=== PATIENT | female | born 1935 | race Caucasian/White ===

== ENCOUNTER 2016-10-17 18:26 | Emergency (ER) | payer OTHER, MEDICAID ==
[~2016-10-17] VITALS: Ht 149.9 cm; Wt 59.0 kg
[2016-10-17 18:26] VITALS: BP 145/92; PULSE 58; RESP 25; TEMP 97.5; O2SAT 100
[~2016-10-17 18:26] MED LIST: ALPHAGAN1 OP; ASPI81TA2 PO; CITA10SO6 PO; DONE5TAB3 PO; DORZ10DR8 OP; ENAL10TA PO; ERGO8000 PO; FERR-57 PO; LEVO100T9 PO; LEVO5TAB13 PO; NIFE30TA27 PO; PROP10DR5 OP; SER100 PO; TRAV2.5D OP
--- NOTE | 2016-10-17 18:26 | NUR ---
Placed in room 03. Placed on switch adjuster, blood pressure machine and pulse oximeter. To gown for exam. Side rails up. Report given to NOHEMI Howard.
--- NOTE | 2016-10-17 18:41 | NUR ---
Medication reconciliation completed with information provided by daughter. Any prior medication reconciliation on file was reviewed and corrected.
[2016-10-17] MEDS ORDERED: ASPIRIN 325 MG TABLET PO ONE (18:45)
[2016-10-17 18:59] LABS: BASOPHILS % (AUTO) 0.5 % (0.0-2.0); EOSINOPHILS # (AUTO) 0.3 K/uL (0.0-0.4); EOSINOPHILS % (AUTO) 4.1 % (0.0-4.0); HEMATOCRIT 30.8 % (36-48); HEMOGLOBIN 9.9 g/dL (12.0-16.0); LYMPHOCYTES # (AUTO) 1.9 K/uL (1.0-5.5); LYMPHOCYTES % (AUTO) 23.9 % (20.5-51.5); MEAN CORPUSCULAR HEMOGLOBIN 29 pg (27-31); MEAN CORPUSCULAR HGB CONC 32 % (32-36); MEAN CORPUSCULAR VOLUME 89 fL (79.0-98.0); MONOCYTES % (AUTO) 12.8 % (1.7-9.3); NEUTROPHILS # (AUTO) 4.9 K/uL (1.8-7.7); NEUTROPHILS % (AUTO) 58.7 % (40.0-70.0); PLATELET COUNT (AUTO) 269 K/uL (130-430); RED BLOOD CELL COUNT(AUTO) 3.48 MIL/uL (4.2-6.2); RED CELL DISTRIBUTION WIDTH 13.8 % (9.0-15.0); WHITE BLOOD COUNT (AUTO) 8.1 K/uL (4.8-10.8)
[2016-10-17 19:08] LABS: ANION GAP 5 (5-15); CHLORIDE 105 mmol/L (98-107); GLUCOSE 102 mg/dL (70-99); POTASSIUM 4.2 mmol/L (3.5-5.1); SODIUM SERUM 135 mmol/L (136-145); UREA NITROGEN, BLOOD 22 mg/dL (8-21)
[2016-10-17 19:11] LABS: INR 0.9 (0.8-1.2); PROTHROMBIN TIME 10.3 SECS (9.5-12.5)
[2016-10-17 19:13] LABS: ALANINE AMINOTRANSFERASE 21 U/L (12-78); ALBUMIN 3.2 g/dL (3.4-4.8); ASPARTATE AMINOTRANSFERASE 15 U/L (10-37); TOTAL BILIRUBIN 0.1 mg/dL (0.0-1.0); TOTAL PROTEIN, SERUM 6.5 g/dL (6.4-8.3)
--- NOTE | 2016-10-17 19:13 | NUR ---
hand off to Cory SONG
--- NOTE | 2016-10-17 19:19 | NUR ---
Pt states about an hour ago, pt started having epigastric pain 8/10 with dyspnea and nausea. Pt is AAOX4. Pt is malay speaking only. VSS. Lung sounds clear in all lobes. No distress noted. Will continue to monitor via monitor technician. No other injuries or complaints mentioned/noted.
[2016-10-17] MEDS ORDERED: PROCHLORPERAZINE EDISYLATE 10 MG/2 ML VIAL IVP ONE (19:30)
[2016-10-17] MEDS ORDERED: KETOROLAC TROMETHAMINE 15 MG VIAL IVP ONE (19:30)
[2016-10-17] MEDS ORDERED: MAG HYDROX/AL HYDROX/SIMETH 30 ML, BELLADONNA ALKALOIDS/PHENOBARB 10 ML, LIDOCAINE VISC... PO ONE ×3 (19:30)
[2016-10-17] MEDS ORDERED: KETOROLAC TROMETHAMINE 30 MG VIAL IVP ONE (20:30)
[2016-10-17 21:11] VITALS: BP 161/74; PULSE 58; RESP 25; TEMP 97.5; O2SAT 97
--- NOTE | 2016-10-17 21:11 | NUR ---
Patient given written and verbal discharge instructions and verbalizes understanding. ER MD discussed with patient the results and treatment provided. Given copies of tests performed in ER. Patient in stable condition. ID arm band removed. IV catheter removed intact and dressing applied, no active bleeding. Rx of Mylanta and bentyl given. Patient educated on pain management and to follow up with PMD. Pain Scale 0/10. Opportunity for questions provided and answered.
== END 2016-10-17 21:11 | disposition home or self-care (01) ==
LOC: SED 18:26
DX: K44.9 Diaphragmatic hernia without obstruction or gangrene (principal); I10 Essential (primary) hypertension; J45.909 Unspecified asthma, uncomplicated; M81.0 Age-related osteoporosis without current pathological fracture
CPT/HCPCS: 36415; 71010; 74176; 80053; 83690; 83880; 84484; 85025; 85610; 85730; 93005; 96374; 96375; 96376; 99285; J0780; J1885 ×2; J2001

== ENCOUNTER 2017-03-23 17:43 | Inpatient (IN) | payer OTHER, MEDICAID ==
[~2017-03-23] VITALS: Ht 149.9 cm; Wt 54.4 kg
[2017-03-23 17:52] VITALS: BP_SYST 110
[2017-03-23 18:27] LABS: BASOPHILS % (AUTO) 0.4 % (0.0-2.0); EOSINOPHILS # (AUTO) 0.3 K/uL (0.0-0.4); EOSINOPHILS % (AUTO) 3.7 % (0.0-4.0); HEMATOCRIT 28.7 % (36-48); HEMOGLOBIN 9.1 g/dL (12.0-16.0); LYMPHOCYTES % (AUTO) 26.1 % (20.5-51.5); MEAN CORPUSCULAR HEMOGLOBIN 28 pg (27-31); MEAN CORPUSCULAR HGB CONC 32 % (32-36); MEAN CORPUSCULAR VOLUME 88 fL (79.0-98.0); MONOCYTES % (AUTO) 12.6 % (1.7-9.3); NEUTROPHILS # (AUTO) 4.4 K/uL (1.8-7.7); NEUTROPHILS % (AUTO) 57.2 % (40.0-70.0); PLATELET COUNT (AUTO) 234 K/uL (130-430); RED BLOOD CELL COUNT(AUTO) 3.28 MIL/uL (4.2-6.2); RED CELL DISTRIBUTION WIDTH 15.1 % (9.0-15.0); WHITE BLOOD COUNT (AUTO) 7.8 K/uL (4.8-10.8)
[2017-03-23 18:38] LABS: ANION GAP 6 (5-15); CALCIUM 9.1 mg/dL (8.4-11.0); CHLORIDE 107 mmol/L (98-107); CREATININE 1.16 mg/dL (0.55-1.30); GLUCOSE 107 mg/dL (70-99); SODIUM SERUM 136 mmol/L (136-145); UREA NITROGEN, BLOOD 28 mg/dL (8-21)
[2017-03-23 18:52] LABS: INR 0.9 (0.8-1.2); PROTHROMBIN TIME 10.3 SECS (9.5-12.5)
[2017-03-23] MEDS ORDERED: ASPIRIN 325 MG TABLET PO ONE (19:30)
[2017-03-23] MEDS ORDERED: LEVO100T9 PO (19:56)
[2017-03-23] MEDS ORDERED: HYDR-2472 PO (19:56)
[2017-03-23] MEDS ORDERED: CETI1TAB2 PO (19:56)
[2017-03-23] MEDS ORDERED: ENAL10TA PO (19:59)
[2017-03-23] MEDS ORDERED: ASPI81TA2 PO (19:59)
[2017-03-23] MEDS ORDERED: HYDR-3698 PO (19:59)
[2017-03-23] MEDS ORDERED: FAMO-129 PO (19:59)
[2017-03-23] MEDS ORDERED: FERR-57 PO (20:04)
[2017-03-23] MEDS ORDERED: CEL20 PO (20:04)
[2017-03-23] MEDS ORDERED: SER100 PO (20:04)
[2017-03-23] MEDS ORDERED: LEVO5TAB2 PO (20:04)
[2017-03-23] MEDS ORDERED: DILT120C89 PO (20:04)
[2017-03-23] MEDS ORDERED: DORZ10DR8 OP (20:04)
[2017-03-23] MEDS ORDERED: LATA2.5D6 OP (20:04)
[2017-03-23] MEDS: POTASSIUM CHLORIDE 20 MEQ in D5/0.45 NS 1,000 ML IV SCH (20:40)
[2017-03-23 21:31] VITALS: BP_SYST 140
[2017-03-23 21:34] VITALS: BP_SYST 140
[2017-03-23] MEDS ORDERED: CITALOPRAM HYDROBROMIDE 20 MG TABLET PO ONE (23:00)
[2017-03-23] MEDS ORDERED: QUEtiapine FUMARATE 100 MG TABLET PO SCH (23:15)
[2017-03-23] MEDS ORDERED: CITALOPRAM HYDROBROMIDE 20 MG TABLET PO SCH (23:15)
[2017-03-23 23:41] VITALS: BP_SYST 150
[2017-03-24] MEDS ORDERED: MILK OF MAGNESIA 30 ML UDC PO PRN (01:00)
[2017-03-24 03:49] VITALS: BP_SYST 148
[2017-03-24] MEDS: LEVOTHYROXINE SODIUM 0.1 MG TABLET PO SCH (06:15)
[2017-03-24 08:05] VITALS: BP_SYST 141
[2017-03-24] MEDS: CITALOPRAM HYDROBROMIDE 20 MG TABLET PO SCH (09:25)
[2017-03-24] MEDS: DILTIAZEM HCL 120 MG CAP.SR.24H PO SCH (09:25)
[2017-03-24] MEDS: ENALAPRIL MALEATE 10 MG TABLET (VASOTEC) PO SCH (09:25)
[2017-03-24] MEDS: QUEtiapine FUMARATE 100 MG TABLET PO SCH (09:25)
[2017-03-24] MEDS: FERROUS SULFATE 325 MG TABLET.DR PO SCH ×2 (09:26→20:59)
[2017-03-24] MEDS: ASPIRIN 81 MG TAB.CHEW PO SCH (09:26)
[2017-03-24] MEDS: LATANOPROST 2.5 ML DROPS (XALATAN) OP SCH (09:26)
[2017-03-24] MEDS: DORZOLAMIDE 2% OPHTHALMIC SOLN 5ML OP SCH ×2 (09:26→20:59)
[2017-03-24 12:32] VITALS: BP_SYST 143
[2017-03-24] MEDS: POTASSIUM CHLORIDE 20 MEQ in D5/0.45 NS 1,000 ML IV SCH (14:02)
[2017-03-24 20:15] VITALS: BP_SYST 125
[2017-03-24] MEDS ORDERED: QUEtiapine FUMARATE 100 MG TABLET PO ONE (23:00)
[2017-03-25] VITALS (10 sets, daily range): BP systolic 127–179
[2017-03-25] MEDS: POTASSIUM CHLORIDE 20 MEQ in D5/0.45 NS 1,000 ML IV SCH ×2 (02:13→14:48)
[2017-03-25] MEDS: LEVOTHYROXINE SODIUM 0.1 MG TABLET PO SCH (06:09)
[2017-03-25 07:54] LABS: IRON (SERUM) 30 mcg/dL (37-145); TOTAL IRON BIND. CAPACITY 171 ug/dL (250-450)
[2017-03-25] MEDS: DORZOLAMIDE 2% OPHTHALMIC SOLN 5ML OP SCH ×2 (08:22→20:32)
[2017-03-25] MEDS: LATANOPROST 2.5 ML DROPS (XALATAN) OP SCH (08:22)
[2017-03-25] MEDS: ENALAPRIL MALEATE 10 MG TABLET (VASOTEC) PO SCH (08:22)
[2017-03-25] MEDS: DILTIAZEM HCL 120 MG CAP.SR.24H PO SCH (08:24)
[2017-03-25] MEDS: CITALOPRAM HYDROBROMIDE 20 MG TABLET PO SCH (08:25)
[2017-03-25] MEDS: QUEtiapine FUMARATE 100 MG TABLET PO SCH (08:25)
[2017-03-25] MEDS: ASPIRIN 81 MG TAB.CHEW PO SCH (08:25)
[2017-03-25] MEDS: FERROUS SULFATE 325 MG TABLET.DR PO SCH ×2 (08:25→20:32)
[2017-03-25 09:21] LABS: ANION GAP 5 (5-15); CALCIUM 9.1 mg/dL (8.4-11.0); CHLORIDE 111 mmol/L (98-107); CREATININE 0.93 mg/dL (0.55-1.30); GLUCOSE 92 mg/dL (70-99); POTASSIUM 4.5 mmol/L (3.5-5.1); SODIUM SERUM 137 mmol/L (136-145); UREA NITROGEN, BLOOD 15 mg/dL (8-21)
[2017-03-25 10:35] LABS: BASOPHILS # (AUTO) 0.1 K/uL (0.0-0.2); BASOPHILS % (AUTO) 1.3 % (0.0-2.0); EOSINOPHILS # (AUTO) 0.3 K/uL (0.0-0.4); HEMOGLOBIN 11.4 g/dL (12.0-16.0); LYMPHOCYTES # (AUTO) 1.8 K/uL (1.0-5.5); LYMPHOCYTES % (AUTO) 28.2 % (20.5-51.5); MEAN CORPUSCULAR HEMOGLOBIN 28 pg (27-31); MEAN CORPUSCULAR HGB CONC 32 % (32-36); MEAN CORPUSCULAR VOLUME 88 fL (79.0-98.0); MONOCYTES # (AUTO) 0.7 K/uL (0.0-1.0); MONOCYTES % (AUTO) 10.2 % (1.7-9.3); NEUTROPHILS # (AUTO) 3.6 K/uL (1.8-7.7); NEUTROPHILS % (AUTO) 56.3 % (40.0-70.0); PLATELET COUNT (AUTO) 254 K/uL (130-430); RED BLOOD CELL COUNT(AUTO) 4.07 MIL/uL (4.2-6.2); RED CELL DISTRIBUTION WIDTH 15.2 % (9.0-15.0)
[2017-03-25 12:11] LABS: WHITE BLOOD COUNT (AUTO) 6.5 K/uL (4.8-10.8)
[2017-03-26] MEDS: POTASSIUM CHLORIDE 20 MEQ in D5/0.45 NS 1,000 ML IV SCH ×2 (04:58→17:33)
[2017-03-26 05:14] VITALS: BP_SYST 120
[2017-03-26] MEDS: LEVOTHYROXINE SODIUM 0.1 MG TABLET PO SCH (06:05)
[2017-03-26 08:01] VITALS: BP_SYST 130
[2017-03-26] MEDS: CITALOPRAM HYDROBROMIDE 20 MG TABLET PO SCH (09:02)
[2017-03-26] MEDS: ASPIRIN 81 MG TAB.CHEW PO SCH (09:03)
[2017-03-26] MEDS: DILTIAZEM HCL 120 MG CAP.SR.24H PO SCH (09:03)
[2017-03-26] MEDS: QUEtiapine FUMARATE 100 MG TABLET PO SCH (09:03)
[2017-03-26] MEDS: FERROUS SULFATE 325 MG TABLET.DR PO SCH ×2 (09:03→21:55)
[2017-03-26] MEDS: ENALAPRIL MALEATE 10 MG TABLET (VASOTEC) PO SCH (09:04)
[2017-03-26] MEDS: DORZOLAMIDE 2% OPHTHALMIC SOLN 5ML OP SCH ×2 (09:04→21:00)
[2017-03-26] MEDS: LATANOPROST 2.5 ML DROPS (XALATAN) OP SCH (09:04)
[2017-03-26 12:15] VITALS: BP_SYST 140
[2017-03-26 17:03] VITALS: BP_SYST 132
[2017-03-26 19:45] VITALS: BP_SYST 133
[2017-03-26] MEDS: MEGESTROL ACETATE 400 MG/10 ML UDC PO SCH (21:53)
[2017-03-26 23:56] VITALS: BP_SYST 125
[2017-03-27 03:08] VITALS: BP_SYST 121
[2017-03-27] MEDS: POTASSIUM CHLORIDE 20 MEQ in D5/0.45 NS 1,000 ML IV SCH (06:25)
[2017-03-27] MEDS: LEVOTHYROXINE SODIUM 0.1 MG TABLET PO SCH (06:27)
[2017-03-27 08:00] VITALS: BP_SYST 167
[2017-03-27] MEDS: MEGESTROL ACETATE 400 MG/10 ML UDC PO SCH (08:34)
[2017-03-27] MEDS: CITALOPRAM HYDROBROMIDE 20 MG TABLET PO SCH (08:37)
[2017-03-27] MEDS: FERROUS SULFATE 325 MG TABLET.DR PO SCH (08:37)
[2017-03-27] MEDS: DILTIAZEM HCL 120 MG CAP.SR.24H PO SCH (08:37)
[2017-03-27] MEDS: DORZOLAMIDE 2% OPHTHALMIC SOLN 5ML OP SCH (08:38)
[2017-03-27] MEDS: ASPIRIN 81 MG TAB.CHEW PO SCH (08:38)
[2017-03-27] MEDS: ENALAPRIL MALEATE 10 MG TABLET (VASOTEC) PO SCH (08:38)
[2017-03-27] MEDS: LATANOPROST 2.5 ML DROPS (XALATAN) OP SCH (08:39)
[2017-03-27 12:26] VITALS: BP_SYST 129
[2017-03-27 13:09] VITALS: BP_SYST 133
[2017-03-27 18:00] VITALS: BP_SYST 133
[2017-03-27 18:08] VITALS: BP_SYST 141
[2017-03-27] MEDS ORDERED: QUEtiapine FUMARATE 100 MG TABLET PO SCH (21:00)
== END 2017-03-27 18:45 | disposition home or self-care (01) | DRG 69 ==
LOC: SED 17:43 → STU 19:55 → MERGE 20:40 → STU 20:40 → SMU 03-25 18:00
PROVIDERS: ADMIT Family Medicine; ATTEND Family Medicine
DX: G45.9 Transient cerebral ischemic attack, unspecified (principal); G81.91 Hemiplegia, unspecified affecting right dominant side; F03.90 Unspecified dementia, unspecified severity, without behavioral disturbance, psychotic disturbance, mood disturbance, and anxiety; F20.9 Schizophrenia, unspecified; D64.9 Anemia, unspecified; I10 Essential (primary) hypertension; E03.9 Hypothyroidism, unspecified; H54.0 Blindness, both eyes; M19.90 Unspecified osteoarthritis, unspecified site; Z86.73 Personal history of transient ischemic attack (TIA), and cerebral infarction without residual deficits
CPT/HCPCS: 36415; 70450-TC; 70490; 71010; 80048; 82607; 82728; 82746; 82962; 83540-TC; 83550-TC; 84484; 85025; 85610-TC; 85730-TC; 93005; 97110-GP; 97116-GP; 97530-GP; 99285; J3480

== ENCOUNTER 2017-05-05 01:17 | Inpatient (IN) | payer OTHER, MEDICAID ==
[~2017-05-05] VITALS: Ht 149.9 cm; Wt 54.9 kg
[~2017-05-05 01:17] MED LIST changes: +CEL20 PO; +CETI1TAB2 PO; +DILT120C89 PO; +FAMO-129 PO; +HYDR-3698 PO; +LATA2.5D6 OP; +LEVO5TAB2 PO
[2017-05-05 01:28] VITALS: BP_SYST 178
[2017-05-05] MEDS ORDERED: NACL 0.9% 1,000 ML IV ONE (01:45)
[2017-05-05] MEDS ORDERED: PROMETHAZINE CODEINE PO (02:00)
[2017-05-05] MEDS ORDERED: MUPI1OIN4 (02:00)
[2017-05-05] MEDS ORDERED: METHYLPREDNISOLONE (02:00)
[2017-05-05] MEDS ORDERED: LEVO500T20 PO (02:00)
[2017-05-05] MEDS ORDERED: LACT1CAP57 PO (02:00)
[2017-05-05 02:42] LABS: BASOPHILS # (AUTO) 0.1 K/uL (0.0-0.2); BASOPHILS % (AUTO) 0.8 % (0.0-2.0); EOSINOPHILS # (AUTO) 0.3 K/uL (0.0-0.4); EOSINOPHILS % (AUTO) 3.6 % (0.0-4.0); HEMATOCRIT 36.6 % (36-48); HEMOGLOBIN 11.9 g/dL (12.0-16.0); LYMPHOCYTES # (AUTO) 2.1 K/uL (1.0-5.5); LYMPHOCYTES % (AUTO) 28.3 % (20.5-51.5); MEAN CORPUSCULAR HEMOGLOBIN 28 pg (27-31); MEAN CORPUSCULAR HGB CONC 33 % (32-36); MEAN CORPUSCULAR VOLUME 87 fL (79.0-98.0); MONOCYTES # (AUTO) 0.9 K/uL (0.0-1.0); NEUTROPHILS % (AUTO) 55.3 % (40.0-70.0); PLATELET COUNT (AUTO) 274 K/uL (130-430); RED BLOOD CELL COUNT(AUTO) 4.21 MIL/uL (4.2-6.2); RED CELL DISTRIBUTION WIDTH 14.1 % (9.0-15.0); WHITE BLOOD COUNT (AUTO) 7.4 K/uL (4.8-10.8)
[2017-05-05 02:52] LABS: ANION GAP 11 (5-15); CALCIUM 10.2 mg/dL (8.4-11.0); CHLORIDE 110 mmol/L (98-107); CREATININE 1.07 mg/dL (0.55-1.30); GLUCOSE 95 mg/dL (70-99); POTASSIUM 4.3 mmol/L (3.5-5.1); SODIUM SERUM 142 mmol/L (136-145); UREA NITROGEN, BLOOD 18 mg/dL (8-21)
[2017-05-05 03:00] LABS: ALANINE AMINOTRANSFERASE 16 U/L (12-78); ALBUMIN 3.6 g/dL (3.4-4.8); ASPARTATE AMINOTRANSFERASE 15 U/L (10-37); LIPASE 417 U/L (73-393); TOTAL BILIRUBIN 0.3 mg/dL (0.0-1.0)
[2017-05-05 03:14] LABS: BILIRUBIN,URINE NEGATIVE (NEGATIVE); BLOOD, URINE NEGATIVE (NEGATIVE); CLARITY/URINE CLEAR (CLEAR); COLOR,URINE YELLOW (YELLOW); GLUCOSE,URINE NEGATIVE (NEGATIVE); KETONES,URINE NEGATIVE (NEGATIVE); LEUKOCYTE ESTERASE ,URINE NEGATIVE (NEGATIVE); NITRITE, URINE NEGATIVE (NEGATIVE); PH,URINE 5.5 (5.0-8.0); PROTEIN URINE NEGATIVE (NEGATIVE); UROBILINOGEN,URINE 0.2 (0.2-1.0)
[2017-05-05] MEDS ORDERED: VANCOMYCIN HCL 1,000 MG in NS 250 ML IV ONE (03:30)
[2017-05-05] MEDS ORDERED: MORPHINE 4 MG/ML INJ. SYRINGE IVP ONE (03:30)
[2017-05-05] MEDS ORDERED: VANCOMYCIN HCL 1000 MG/VIAL IV ONE (03:41)
[2017-05-05] MEDS ORDERED: ONDANSETRON HCL 4 MG/2 ML VIAL IVP PRN (04:00)
[2017-05-05] MEDS ORDERED: MORPHINE 2 MG/ML INJ. SYRINGE IVP PRN (04:00)
[2017-05-05] MEDS ORDERED: IOHEXOL 100 ML IV ONE (04:09)
[2017-05-05] MEDS ORDERED: hydrALAZINE HCL 20 MG/ML VIAL IVP ONE (04:30)
[2017-05-05 04:55] VITALS: BP_SYST 133
[2017-05-05] MEDS: KCL 20 mEq in D5/0.45NS 1000mL 1,000 ML IV SCH ×2 (05:45→17:59)
[2017-05-05 08:03] VITALS: BP_SYST 150
[2017-05-05] MEDS ORDERED: FLU VACC QS 2017-18(36MOS+)/PF 0.5 ML/SYR SYRINGE I.M. PRN (08:15)
[2017-05-05] MEDS: PANTOPRAZOLE SODIUM 40 MG/VIAL (PROTONIX) IVP SCH (09:49)
[2017-05-05 13:54] VITALS: BP_SYST 169
[2017-05-05 16:12] VITALS: BP_SYST 155
[2017-05-05 20:00] VITALS: BP_SYST 148
[2017-05-05] MEDS ORDERED: TRAVOPROST 0.004% 2.5 ML EYE DROPS OP SCH (21:00)
[2017-05-05] MEDS ORDERED: BRIMONIDINE TARTRATE 0.1% 5 mL EYE DROPS OP SCH (21:00)
[2017-05-05] MEDS: DORZOLAMIDE 2% OPHTHALMIC SOLN 5ML OP SCH (21:58)
[2017-05-05] MEDS: BRIMONIDINE TARTRATE 0.2% 5 mL EYE DROPS OP SCH (21:59)
[2017-05-05] MEDS: QUEtiapine FUMARATE 100 MG TABLET PO SCH (21:59)
[2017-05-05] MEDS: FERROUS SULFATE 325 MG TABLET.DR PO SCH (21:59)
[2017-05-05] MEDS: LACTOBACILLUS RHAMNOSUS GG 1 CAP CAPSULE PO SCH (21:59)
[2017-05-05] MEDS: MUPIROCIN 2% TOPICAL OINTMENT 22 GM NS SCH (22:00)
[2017-05-05] MEDS ORDERED: CITALOPRAM HYDROBROMIDE 20 MG TABLET PO ONE (22:45)
[2017-05-06 05:01] VITALS: BP_SYST 154
[2017-05-06] MEDS: KCL 20 mEq in D5/0.45NS 1000mL 1,000 ML IV SCH ×2 (06:07→20:47)
[2017-05-06] MEDS: LEVOTHYROXINE SODIUM 0.1 MG TABLET PO SCH (06:07)
[2017-05-06 07:08] LABS: BASOPHILS % (AUTO) 0.5 % (0.0-2.0); EOSINOPHILS # (AUTO) 0.3 K/uL (0.0-0.4); EOSINOPHILS % (AUTO) 3.6 % (0.0-4.0); HEMATOCRIT 34.3 % (36-48); HEMOGLOBIN 11.2 g/dL (12.0-16.0); LYMPHOCYTES # (AUTO) 2.2 K/uL (1.0-5.5); LYMPHOCYTES % (AUTO) 29.5 % (20.5-51.5); MEAN CORPUSCULAR HEMOGLOBIN 29 pg (27-31); MEAN CORPUSCULAR HGB CONC 33 % (32-36); MEAN CORPUSCULAR VOLUME 87 fL (79.0-98.0); MONOCYTES # (AUTO) 0.9 K/uL (0.0-1.0); MONOCYTES % (AUTO) 12.6 % (1.7-9.3); NEUTROPHILS # (AUTO) 4.1 K/uL (1.8-7.7); NEUTROPHILS % (AUTO) 53.8 % (40.0-70.0); PLATELET COUNT (AUTO) 273 K/uL (130-430); RED BLOOD CELL COUNT(AUTO) 3.92 MIL/uL (4.2-6.2); RED CELL DISTRIBUTION WIDTH 14.2 % (9.0-15.0); WHITE BLOOD COUNT (AUTO) 7.5 K/uL (4.8-10.8)
[2017-05-06 07:17] LABS: AMYLASE 49 U/L (0-100); ANION GAP 8 (5-15); CALCIUM 9.7 mg/dL (8.4-11.0); CHLORIDE 114 mmol/L (98-107); GLUCOSE 100 mg/dL (70-99); LIPASE 229 U/L (73-393); POTASSIUM 3.9 mmol/L (3.5-5.1); SODIUM SERUM 142 mmol/L (136-145); UREA NITROGEN, BLOOD 7 mg/dL (8-21)
[2017-05-06 08:09] VITALS: BP_SYST 135
[2017-05-06] MEDS ORDERED: ZYRTEC D PO SCH (09:00)
[2017-05-06] MEDS ORDERED: CITALOPRAM HYDROBROMIDE 20 MG TABLET PO SCH (09:00)
[2017-05-06] MEDS: PANTOPRAZOLE SODIUM 40 MG/VIAL (PROTONIX) IVP SCH (10:00)
[2017-05-06] MEDS: BRIMONIDINE TARTRATE 0.2% 5 mL EYE DROPS OP SCH ×2 (10:00→20:28)
[2017-05-06] MEDS: MUPIROCIN 2% TOPICAL OINTMENT 22 GM NS SCH ×2 (10:00→20:28)
[2017-05-06] MEDS: DORZOLAMIDE 2% OPHTHALMIC SOLN 5ML OP SCH ×2 (10:01→20:27)
[2017-05-06] MEDS: DILTIAZEM HCL 120 MG CAP.SR.24H PO SCH (10:05)
[2017-05-06] MEDS: LEVOFLOXACIN 500 MG TABLET PO SCH (10:06)
[2017-05-06] MEDS: FERROUS SULFATE 325 MG TABLET.DR PO SCH ×2 (10:06→20:26)
[2017-05-06] MEDS: LACTOBACILLUS RHAMNOSUS GG 1 CAP CAPSULE PO SCH ×2 (10:06→20:26)
[2017-05-06] MEDS: ENALAPRIL MALEATE 10 MG TABLET (VASOTEC) PO SCH (10:07)
[2017-05-06 12:22] VITALS: BP_SYST 133
[2017-05-06 16:21] VITALS: BP_SYST 130
[2017-05-06] MEDS ORDERED: BISACODYL 10 MG/SUPPOSITORY RC ONE (19:00)
[2017-05-06] MEDS ORDERED: MILK OF MAGNESIA 30 ML UDC PO PRN (19:00)
[2017-05-06] MEDS ORDERED: BISACODYL 10 MG/SUPPOSITORY RC PRN (19:00)
[2017-05-06 20:00] VITALS: BP_SYST 143
[2017-05-06] MEDS: QUEtiapine FUMARATE 100 MG TABLET PO SCH (20:26)
[2017-05-06] MEDS: CITALOPRAM HYDROBROMIDE 20 MG TABLET PO SCH (20:26)
[2017-05-06] MEDS: LATANOPROST 2.5 ML DROPS (XALATAN) OP SCH (20:27)
[2017-05-06 23:59] VITALS: BP_SYST 118
[2017-05-07 04:38] VITALS: BP_SYST 116
[2017-05-07] MEDS: LEVOTHYROXINE SODIUM 0.1 MG TABLET PO SCH (06:17)
[2017-05-07 08:00] VITALS: BP_SYST 177
[2017-05-07] MEDS: BRIMONIDINE TARTRATE 0.2% 5 mL EYE DROPS OP SCH ×2 (09:04→21:32)
[2017-05-07] MEDS: PANTOPRAZOLE SODIUM 40 MG/VIAL (PROTONIX) IVP SCH (09:04)
[2017-05-07] MEDS: MUPIROCIN 2% TOPICAL OINTMENT 22 GM NS SCH ×2 (09:05→21:32)
[2017-05-07] MEDS: DORZOLAMIDE 2% OPHTHALMIC SOLN 5ML OP SCH ×2 (09:05→21:32)
[2017-05-07] MEDS: LACTOBACILLUS RHAMNOSUS GG 1 CAP CAPSULE PO SCH ×2 (09:05→21:31)
[2017-05-07] MEDS: LEVOFLOXACIN 500 MG TABLET PO SCH (09:05)
[2017-05-07] MEDS: ENALAPRIL MALEATE 10 MG TABLET (VASOTEC) PO SCH (09:06)
[2017-05-07] MEDS: FERROUS SULFATE 325 MG TABLET.DR PO SCH ×2 (09:07→21:31)
[2017-05-07] MEDS: DILTIAZEM HCL 120 MG CAP.SR.24H PO SCH (09:07)
[2017-05-07] MEDS: KCL 20 mEq in D5/0.45NS 1000mL 1,000 ML IV SCH ×2 (09:08→22:40)
[2017-05-07 16:45] VITALS: BP_SYST 125
[2017-05-07 20:00] VITALS: BP_SYST 150
[2017-05-07] MEDS: QUEtiapine FUMARATE 100 MG TABLET PO SCH (21:31)
[2017-05-07] MEDS: CITALOPRAM HYDROBROMIDE 20 MG TABLET PO SCH (21:31)
[2017-05-07] MEDS: LATANOPROST 2.5 ML DROPS (XALATAN) OP SCH (21:32)
[2017-05-08] MEDS: KCL 20 mEq in D5/0.45NS 1000mL 1,000 ML IV SCH (06:10)
[2017-05-08] MEDS: LEVOTHYROXINE SODIUM 0.1 MG TABLET PO SCH (06:22)
[2017-05-08] MEDS ORDERED: ERGOCALCIFEROL 8000 UNITS/ML ORAL SOLUTION, 60 ML BOTTLE PO SCH (09:00)
[2017-05-08] MEDS: LEVOFLOXACIN 500 MG TABLET PO SCH (09:34)
[2017-05-08] MEDS: LACTOBACILLUS RHAMNOSUS GG 1 CAP CAPSULE PO SCH (09:34)
[2017-05-08] MEDS: FERROUS SULFATE 325 MG TABLET.DR PO SCH (09:34)
[2017-05-08] MEDS: PANTOPRAZOLE SODIUM 40 MG/VIAL (PROTONIX) IVP SCH (09:34)
[2017-05-08] MEDS: DILTIAZEM HCL 120 MG CAP.SR.24H PO SCH (09:34)
[2017-05-08] MEDS: MUPIROCIN 2% TOPICAL OINTMENT 22 GM NS SCH (09:39)
[2017-05-08] MEDS: BRIMONIDINE TARTRATE 0.2% 5 mL EYE DROPS OP SCH (09:40)
[2017-05-08] MEDS: DORZOLAMIDE 2% OPHTHALMIC SOLN 5ML OP SCH (09:40)
[2017-05-08] MEDS: ENALAPRIL MALEATE 10 MG TABLET (VASOTEC) PO SCH (09:41)
[2017-05-08 12:02] VITALS: BP_SYST 144
[2017-05-08 12:56] VITALS: BP_SYST 152
== END 2017-05-08 15:15 | disposition home or self-care (01) | DRG 438 ==
LOC: SED 01:17 → SMU 03:47
PROVIDERS: ADMIT Family Medicine; ATTEND Family Medicine
DX: K85.90 Acute pancreatitis without necrosis or infection, unspecified (principal); G93.41 Metabolic encephalopathy; F03.90 Unspecified dementia, unspecified severity, without behavioral disturbance, psychotic disturbance, mood disturbance, and anxiety; E11.9 Type 2 diabetes mellitus without complications; E03.9 Hypothyroidism, unspecified; H54.8 Legal blindness, as defined in USA; I10 Essential (primary) hypertension
CPT/HCPCS: 36415; 70450-TC; 71010; 80048; 80053; 81003; 82150-TC; 83690-TC; 84484; 85025; 93005; 96361; 96365; 96366; 96375; 97116-GP; 97530-GP; 99285; C9113; J0360; J2270; J3370; J7030; J7050; Q2037; Q9967

== ENCOUNTER 2017-08-17 02:14 | Inpatient (IN) | payer OTHER, MEDICAID ==
[~2017-08-17] VITALS: Ht 149.9 cm; Wt 56.7 kg
[~2017-08-17 02:14] MED LIST changes: -ASPI81TA2 PO; -CITA10SO6 PO; -DONE5TAB3 PO; +LACT1CAP57 PO; +LEVO500T20 PO; -LEVO5TAB13 PO; +METHYLPREDNISOLONE; +MUPI1OIN4; -NIFE30TA27 PO; +PROMETHAZINE CODEINE PO; -PROP10DR5 OP
[2017-08-17 02:15] VITALS: BP_SYST 135
[2017-08-17] MEDS ORDERED: NS 500 ML IV SCH (02:54)
[2017-08-17] MEDS ORDERED: IPRATROPIUM/ALBUTEROL SULFATE 3 ML AMPUL.NEB INH ONE ×2 (03:00→04:15)
[2017-08-17] MEDS ORDERED: CLOP75TA2 PO (03:30)
[2017-08-17] MEDS ORDERED: DONE5TAB3 PO (03:34)
[2017-08-17] MEDS ORDERED: ERGO500043 PO (03:38)
[2017-08-17] MEDS ORDERED: CAT.1 PO (03:39)
[2017-08-17 03:54] LABS: ANION GAP 9 (5-15); CALCIUM 9.7 mg/dL (8.4-11.0); CHLORIDE 105 mmol/L (98-107); CREATININE 0.96 mg/dL (0.55-1.30); GLUCOSE 104 mg/dL (70-99); SODIUM SERUM 134 mmol/L (136-145); UREA NITROGEN, BLOOD 22 mg/dL (8-21)
[2017-08-17 03:59] LABS: ALANINE AMINOTRANSFERASE 24 U/L (12-78); ALBUMIN 3.1 g/dL (3.4-4.8); ASPARTATE AMINOTRANSFERASE 24 U/L (10-37); TOTAL BILIRUBIN 0.2 mg/dL (0.0-1.0)
[2017-08-17 04:02] LABS: BILIRUBIN,URINE NEGATIVE (NEGATIVE); CLARITY/URINE CLEAR (CLEAR); COLOR,URINE YELLOW (YELLOW); GLUCOSE,URINE NEGATIVE (NEGATIVE); KETONES,URINE NEGATIVE (NEGATIVE); LEUKOCYTE ESTERASE ,URINE NEGATIVE (NEGATIVE); NITRITE, URINE NEGATIVE (NEGATIVE); PROTEIN URINE TRACE (NEGATIVE); UROBILINOGEN,URINE 0.2 (0.2-1.0)
[2017-08-17 04:08] LABS: MEAN CORPUSCULAR HEMOGLOBIN 29 pg (27-31)
[2017-08-17 04:11] LABS: HEMATOCRIT 38.8 % (36-48); HEMOGLOBIN 12.6 g/dL (12.0-16.0); MEAN CORPUSCULAR VOLUME 88 fL (79.0-98.0); WHITE BLOOD COUNT (AUTO) 5.4 K/uL (4.8-10.8)
[2017-08-17 04:12] LABS: MEAN CORPUSCULAR HGB CONC 33 % (32-36); PLATELET COUNT (AUTO) 224 K/uL (130-430); RED CELL DISTRIBUTION WIDTH 14.8 % (9.0-15.0)
[2017-08-17] MEDS ORDERED: MAGNESIUM SULFATE 50 ML IV ONE (04:15)
[2017-08-17] MEDS ORDERED: methylPREDNISolone SOD SUCC/PF 62.5 MG/ML VIAL IVP ONE (04:15)
[2017-08-17 04:21] LABS: BLOOD, URINE TRACE (NEGATIVE)
[2017-08-17 04:38] LABS: BACTERIA,URINE FEW /HPF (None Seen); MUCUS,URINE None Seen /LPF (None Seen); RBC,URINE 0-3 /HPF (0-3); URINE AMORPHOUS URATE 1+ /HPF (None Seen); WBC,URINE 0-3 /HPF (0-3)
[2017-08-17 04:56] LABS: PROTHROMBIN TIME 9.8 SECS (9.5-12.5)
[2017-08-17] MEDS ORDERED: OSELTAMIVIR PHOSPHATE 75 MG CAPSULE PO ONE (05:45)
[2017-08-17] MEDS ORDERED: IPRATROPIUM/ALBUTEROL SULFATE 3 ML AMPUL.NEB INH PRN (05:45)
[2017-08-17 06:13] LABS: BASOPHILS % (MANUAL) 0 % (0-2); EOSINOPHILS % (MANUAL) 0 % (0-7); LYMPHOCYTES % (MANUAL) 21 % (20-46); MONOCYTES % (MANUAL) 20 % (0-11)
[2017-08-17] MEDS ORDERED: NON-FORMULARY MEDICATION (Ergocalciferol (Vitamin D2) (Vitamin D2) 50,000 UNIT) PO SCH (07:15)
[2017-08-17] MEDS ORDERED: cloNIDine HCL 0.1 MG TABLET PO PRN (07:15)
[2017-08-17] MEDS ORDERED: LEVOCETIRIZINE DIHYDROCHLORIDE 5 MG PO SCH (09:00)
[2017-08-17] MEDS: DORZOLAMIDE 2% OPHTHALMIC SOLN 5ML OP SCH ×2 (09:00→22:47)
[2017-08-17 11:11] VITALS: BP_SYST 147
[2017-08-17] MEDS: CITALOPRAM HYDROBROMIDE 20 MG TABLET PO SCH (12:25)
[2017-08-17] MEDS: FERROUS SULFATE 325 MG TABLET.DR PO SCH ×2 (12:26→22:46)
[2017-08-17] MEDS: ENALAPRIL MALEATE 10 MG TABLET (VASOTEC) PO SCH (12:26)
[2017-08-17] MEDS: DILTIAZEM HCL 120 MG CAP.SR.24H PO SCH (12:26)
[2017-08-17] MEDS: CLOPIDOGREL BISULFATE 75 MG TABLET PO SCH (12:26)
[2017-08-17] MEDS: FAMOTIDINE 20 MG TABLET PO SCH (12:26)
[2017-08-17] MEDS: LEVOTHYROXINE SODIUM 0.1 MG TABLET PO SCH (12:27)
[2017-08-17] MEDS: methylPREDNISolone SOD SUCC/PF 62.5 MG/ML VIAL IVP SCH ×2 (15:10→22:47)
[2017-08-17 15:26] VITALS: BP_SYST 151
[2017-08-17] MEDS: NACL 0.9% 1,000 ML IV SCH (16:51)
[2017-08-17] MEDS ORDERED: cefTRIAXone 1 GM in D5W 50 ML IV ONE (17:15)
[2017-08-17 20:00] VITALS: BP_SYST 128
[2017-08-17] MEDS: LATANOPROST 2.5 ML DROPS (XALATAN) OP SCH (21:00)
[2017-08-17] MEDS: OSELTAMIVIR PHOSPHATE 75 MG CAPSULE PO SCH (22:46)
[2017-08-17] MEDS: QUEtiapine FUMARATE 100 MG TABLET PO SCH (22:46)
[2017-08-17] MEDS: DONEPEZIL HCL 5 MG TABLET (ARICEPT) PO SCH (22:46)
[2017-08-18] VITALS: BP_SYST 122
[2017-08-18] MEDS: methylPREDNISolone SOD SUCC/PF 62.5 MG/ML VIAL IVP SCH ×3 (05:51→21:18)
[2017-08-18] MEDS: LEVOTHYROXINE SODIUM 0.1 MG TABLET PO SCH (06:25)
[2017-08-18 07:10] LABS: ANION GAP 9 (5-15); CALCIUM 10.5 mg/dL (8.4-11.0); CHLORIDE 110 mmol/L (98-107); CREATININE 0.89 mg/dL (0.55-1.30); GLUCOSE 138 mg/dL (70-99); POTASSIUM 4.4 mmol/L (3.5-5.1); SODIUM SERUM 138 mmol/L (136-145); UREA NITROGEN, BLOOD 19 mg/dL (8-21)
[2017-08-18 07:12] LABS: EOSINOPHILS % (AUTO) 0.1 % (0.0-4.0); HEMATOCRIT 35.3 % (36-48); HEMOGLOBIN 11.6 g/dL (12.0-16.0); LYMPHOCYTES # (AUTO) 0.9 K/uL (1.0-5.5); LYMPHOCYTES % (AUTO) 14.6 % (20.5-51.5); MEAN CORPUSCULAR HEMOGLOBIN 29 pg (27-31); MEAN CORPUSCULAR HGB CONC 33 % (32-36); MEAN CORPUSCULAR VOLUME 88 fL (79.0-98.0); MONOCYTES # (AUTO) 0.5 K/uL (0.0-1.0); MONOCYTES % (AUTO) 8.3 % (1.7-9.3); NEUTROPHILS # (AUTO) 4.5 K/uL (1.8-7.7); PLATELET COUNT (AUTO) 214 K/uL (130-430); WHITE BLOOD COUNT (AUTO) 5.9 K/uL (4.8-10.8)
[2017-08-18 08:28] VITALS: BP_SYST 163
[2017-08-18] MEDS ORDERED: cloNIDine HCL 0.1 MG TABLET PO PRN (08:30)
[2017-08-18] MEDS: FERROUS SULFATE 325 MG TABLET.DR PO SCH ×3 (09:22→21:20)
[2017-08-18] MEDS: DORZOLAMIDE 2% OPHTHALMIC SOLN 5ML OP SCH ×3 (09:22→22:45)
[2017-08-18] MEDS: FAMOTIDINE 20 MG TABLET PO SCH (09:22)
[2017-08-18] MEDS: OSELTAMIVIR PHOSPHATE 75 MG CAPSULE PO SCH ×3 (09:23→21:20)
[2017-08-18] MEDS: CITALOPRAM HYDROBROMIDE 20 MG TABLET PO SCH (09:23)
[2017-08-18] MEDS: ENALAPRIL MALEATE 10 MG TABLET (VASOTEC) PO SCH (09:23)
[2017-08-18] MEDS: DILTIAZEM HCL 120 MG CAP.SR.24H PO SCH (09:23)
[2017-08-18] MEDS: CLOPIDOGREL BISULFATE 75 MG TABLET PO SCH (09:24)
[2017-08-18 12:00] VITALS: BP_SYST 140
[2017-08-18] MEDS: NACL 0.9% 1,000 ML IV SCH ×2 (13:24→17:25)
[2017-08-18 15:33] VITALS: BP_SYST 151
[2017-08-18] MEDS: LATANOPROST 2.5 ML DROPS (XALATAN) OP SCH (21:00)
[2017-08-18] MEDS: DONEPEZIL HCL 5 MG TABLET (ARICEPT) PO SCH ×2 (21:00→21:19)
[2017-08-18] MEDS: QUEtiapine FUMARATE 100 MG TABLET PO SCH ×2 (21:00→21:19)
[2017-08-18] MEDS: cefTRIAXone 1 GM in D5W 50 ML IV SCH (21:18)
[2017-08-19 02:12] VITALS: BP_SYST 132
[2017-08-19] MEDS: methylPREDNISolone SOD SUCC/PF 62.5 MG/ML VIAL IVP SCH ×2 (06:00→23:03)
[2017-08-19] MEDS: LEVOTHYROXINE SODIUM 0.1 MG TABLET PO SCH (07:00)
[2017-08-19 08:00] VITALS: BP_SYST 167
[2017-08-19] MEDS: OSELTAMIVIR PHOSPHATE 75 MG CAPSULE PO SCH ×2 (09:00→23:03)
[2017-08-19] MEDS: FERROUS SULFATE 325 MG TABLET.DR PO SCH ×2 (09:00→21:00)
[2017-08-19] MEDS: ENALAPRIL MALEATE 10 MG TABLET (VASOTEC) PO SCH (09:00)
[2017-08-19] MEDS: FAMOTIDINE 20 MG TABLET PO SCH (09:00)
[2017-08-19] MEDS: CITALOPRAM HYDROBROMIDE 20 MG TABLET PO SCH (09:00)
[2017-08-19] MEDS: CLOPIDOGREL BISULFATE 75 MG TABLET PO SCH (09:00)
[2017-08-19] MEDS: DILTIAZEM HCL 120 MG CAP.SR.24H PO SCH (09:00)
[2017-08-19 12:00] VITALS: BP_SYST 168
[2017-08-19 13:10] LABS: BASOPHILS % (AUTO) 0.2 % (0.0-2.0); EOSINOPHILS % (AUTO) 0.1 % (0.0-4.0); HEMATOCRIT 38.9 % (36-48); HEMOGLOBIN 12.9 g/dL (12.0-16.0); LYMPHOCYTES # (AUTO) 0.8 K/uL (1.0-5.5); LYMPHOCYTES % (AUTO) 8.2 % (20.5-51.5); MEAN CORPUSCULAR HEMOGLOBIN 29 pg (27-31); MEAN CORPUSCULAR HGB CONC 33 % (32-36); MEAN CORPUSCULAR VOLUME 88 fL (79.0-98.0); MONOCYTES # (AUTO) 0.2 K/uL (0.0-1.0); MONOCYTES % (AUTO) 2.3 % (1.7-9.3); NEUTROPHILS # (AUTO) 8.5 K/uL (1.8-7.7); NEUTROPHILS % (AUTO) 89.2 % (40.0-70.0); PLATELET COUNT (AUTO) 251 K/uL (130-430); RED BLOOD CELL COUNT(AUTO) 4.41 MIL/uL (4.2-6.2); RED CELL DISTRIBUTION WIDTH 14.8 % (9.0-15.0); WHITE BLOOD COUNT (AUTO) 9.5 K/uL (4.8-10.8)
[2017-08-19 15:53] VITALS: BP_SYST 140
[2017-08-19 16:22] LABS: ANION GAP 12 (5-15); CALCIUM 9.6 mg/dL (8.4-11.0); CHLORIDE 108 mmol/L (98-107); CREATININE 0.74 mg/dL (0.55-1.30); GLUCOSE 135 mg/dL (70-99); POTASSIUM 3.8 mmol/L (3.5-5.1); SODIUM SERUM 140 mmol/L (136-145); UREA NITROGEN, BLOOD 18 mg/dL (8-21)
[2017-08-19] MEDS: ACETAMINOPHEN 325 MG TABLET PO PRN (16:23)
[2017-08-19] MEDS: NACL 0.9% 1,000 ML IV SCH ×2 (16:23→20:05)
[2017-08-19 16:50] VITALS: BP_SYST 132
[2017-08-19] MEDS: IPRATROPIUM/ALBUTEROL SULFATE 3 ML AMPUL.NEB INH SCH ×2 (19:15→23:09)
[2017-08-19] MEDS: LATANOPROST 2.5 ML DROPS (XALATAN) OP SCH (21:00)
[2017-08-19] MEDS: DORZOLAMIDE 2% OPHTHALMIC SOLN 5ML OP SCH (23:02)
[2017-08-19] MEDS: cefTRIAXone 1 GM in D5W 50 ML IV SCH (23:02)
[2017-08-19] MEDS: DONEPEZIL HCL 5 MG TABLET (ARICEPT) PO SCH (23:03)
[2017-08-19] MEDS: QUEtiapine FUMARATE 100 MG TABLET PO SCH (23:03)
[2017-08-20 01:06] VITALS: BP_SYST 177
[2017-08-20] MEDS: IPRATROPIUM/ALBUTEROL SULFATE 3 ML AMPUL.NEB INH SCH ×5 (03:46→21:18)
[2017-08-20] MEDS: LEVOTHYROXINE SODIUM 0.1 MG TABLET PO SCH (06:03)
[2017-08-20] MEDS: methylPREDNISolone SOD SUCC/PF 62.5 MG/ML VIAL IVP SCH (06:04)
[2017-08-20 07:45] VITALS: BP_SYST 172
[2017-08-20] MEDS: CITALOPRAM HYDROBROMIDE 20 MG TABLET PO SCH (09:43)
[2017-08-20] MEDS: DILTIAZEM HCL 120 MG CAP.SR.24H PO SCH (09:43)
[2017-08-20] MEDS: FERROUS SULFATE 325 MG TABLET.DR PO SCH ×2 (09:43→21:30)
[2017-08-20] MEDS: ENALAPRIL MALEATE 10 MG TABLET (VASOTEC) PO SCH (09:43)
[2017-08-20] MEDS: OSELTAMIVIR PHOSPHATE 75 MG CAPSULE PO SCH ×2 (09:43→20:51)
[2017-08-20] MEDS: FAMOTIDINE 20 MG TABLET PO SCH (09:43)
[2017-08-20] MEDS: DORZOLAMIDE 2% OPHTHALMIC SOLN 5ML OP SCH ×2 (09:44→21:31)
[2017-08-20] MEDS: CLOPIDOGREL BISULFATE 75 MG TABLET PO SCH (09:54)
[2017-08-20] MEDS: NACL 0.9% 1,000 ML IV SCH ×2 (09:54→21:30)
[2017-08-20 12:00] VITALS: BP_SYST 150
[2017-08-20 16:00] VITALS: BP_SYST 155
[2017-08-20] MEDS: ACETAMINOPHEN 325 MG TABLET PO PRN (19:47)
[2017-08-20 19:52] VITALS: BP_SYST 155
[2017-08-20] MEDS: cefTRIAXone 1 GM in D5W 50 ML IV SCH (20:50)
[2017-08-20] MEDS: methylPREDNISolone SOD SUCC 40 MG/ML VIAL IVP SCH (20:51)
[2017-08-20] MEDS: QUEtiapine FUMARATE 100 MG TABLET PO SCH (20:51)
[2017-08-20] MEDS: DONEPEZIL HCL 5 MG TABLET (ARICEPT) PO SCH (20:51)
[2017-08-20] MEDS: LATANOPROST 2.5 ML DROPS (XALATAN) OP SCH (21:00)
[2017-08-21] MEDS: IPRATROPIUM/ALBUTEROL SULFATE 3 ML AMPUL.NEB INH SCH ×6 (00:03→20:33)
[2017-08-21 02:13] VITALS: BP_SYST 183
[2017-08-21] MEDS: LEVOTHYROXINE SODIUM 0.1 MG TABLET PO SCH (06:31)
[2017-08-21 07:01] LABS: ANION GAP 13 (5-15); CALCIUM 9.8 mg/dL (8.4-11.0); CHLORIDE 110 mmol/L (98-107); CREATININE 0.98 mg/dL (0.55-1.30); GLUCOSE 177 mg/dL (70-99); POTASSIUM 3.3 mmol/L (3.5-5.1); SODIUM SERUM 141 mmol/L (136-145); UREA NITROGEN, BLOOD 23 mg/dL (8-21)
[2017-08-21 07:04] LABS: BASOPHILS % (AUTO) 0.3 % (0.0-2.0); HEMATOCRIT 36.5 % (36-48); HEMOGLOBIN 11.9 g/dL (12.0-16.0); LYMPHOCYTES # (AUTO) 0.4 K/uL (1.0-5.5); LYMPHOCYTES % (AUTO) 3.3 % (20.5-51.5); MEAN CORPUSCULAR HEMOGLOBIN 29 pg (27-31); MEAN CORPUSCULAR HGB CONC 33 % (32-36); MEAN CORPUSCULAR VOLUME 88 fL (79.0-98.0); MONOCYTES # (AUTO) 0.7 K/uL (0.0-1.0); MONOCYTES % (AUTO) 6.3 % (1.7-9.3); NEUTROPHILS % (AUTO) 90.1 % (40.0-70.0); PLATELET COUNT (AUTO) 249 K/uL (130-430); RED BLOOD CELL COUNT(AUTO) 4.14 MIL/uL (4.2-6.2); WHITE BLOOD COUNT (AUTO) 11.1 K/uL (4.8-10.8)
[2017-08-21 08:00] VITALS: BP_SYST 171
[2017-08-21] MEDS: OSELTAMIVIR PHOSPHATE 75 MG CAPSULE PO SCH ×2 (08:57→20:49)
[2017-08-21] MEDS: ENALAPRIL MALEATE 10 MG TABLET (VASOTEC) PO SCH (08:57)
[2017-08-21] MEDS: CITALOPRAM HYDROBROMIDE 20 MG TABLET PO SCH (08:57)
[2017-08-21] MEDS: DILTIAZEM HCL 120 MG CAP.SR.24H PO SCH (08:57)
[2017-08-21] MEDS: CLOPIDOGREL BISULFATE 75 MG TABLET PO SCH (08:57)
[2017-08-21] MEDS: methylPREDNISolone SOD SUCC 40 MG/ML VIAL IVP SCH ×2 (08:58→20:48)
[2017-08-21] MEDS: FAMOTIDINE 20 MG TABLET PO SCH (09:00)
[2017-08-21] MEDS: FERROUS SULFATE 325 MG TABLET.DR PO SCH ×2 (09:00→20:49)
[2017-08-21] MEDS: DORZOLAMIDE 2% OPHTHALMIC SOLN 5ML OP SCH ×2 (09:00→20:58)
[2017-08-21 12:00] VITALS: BP_SYST 137
[2017-08-21] MEDS: NACL 0.9% 1,000 ML IV SCH (13:00)
[2017-08-21] MEDS ORDERED: POTASSIUM CHLORIDE 40 MEQ in NS 250 ML IV ONE (16:30)
[2017-08-21 16:36] VITALS: BP_SYST 156
[2017-08-21 20:00] VITALS: BP_SYST 106
[2017-08-21] MEDS: cefTRIAXone 1 GM in D5W 50 ML IV SCH (20:48)
[2017-08-21] MEDS: DONEPEZIL HCL 5 MG TABLET (ARICEPT) PO SCH (20:49)
[2017-08-21] MEDS: QUEtiapine FUMARATE 100 MG TABLET PO SCH (20:49)
[2017-08-21] MEDS: LATANOPROST 2.5 ML DROPS (XALATAN) OP SCH (20:58)
[2017-08-22] VITALS (9 sets, daily range): BP systolic 153–195
[2017-08-22] MEDS: IPRATROPIUM/ALBUTEROL SULFATE 3 ML AMPUL.NEB INH SCH ×7 (00:36→23:47)
[2017-08-22] MEDS: LEVOTHYROXINE SODIUM 0.1 MG TABLET PO SCH (06:10)
[2017-08-22] MEDS: NACL 0.9% 1,000 ML IV SCH ×2 (06:10→15:59)
[2017-08-22 06:55] LABS: BASOPHILS % (AUTO) 0.1 % (0.0-2.0); EOSINOPHILS % (AUTO) 0.1 % (0.0-4.0); HEMATOCRIT 34.2 % (36-48); HEMOGLOBIN 11.4 g/dL (12.0-16.0); LYMPHOCYTES # (AUTO) 0.4 K/uL (1.0-5.5); LYMPHOCYTES % (AUTO) 3.9 % (20.5-51.5); MEAN CORPUSCULAR HEMOGLOBIN 29 pg (27-31); MEAN CORPUSCULAR HGB CONC 33 % (32-36); MEAN CORPUSCULAR VOLUME 88 fL (79.0-98.0); MONOCYTES # (AUTO) 0.4 K/uL (0.0-1.0); MONOCYTES % (AUTO) 4.2 % (1.7-9.3); NEUTROPHILS # (AUTO) 9.2 K/uL (1.8-7.7); NEUTROPHILS % (AUTO) 91.7 % (40.0-70.0); PLATELET COUNT (AUTO) 247 K/uL (130-430); RED BLOOD CELL COUNT(AUTO) 3.89 MIL/uL (4.2-6.2)
[2017-08-22 07:11] LABS: ANION GAP 10 (5-15); CALCIUM 9.6 mg/dL (8.4-11.0); CHLORIDE 111 mmol/L (98-107); CREATININE 0.77 mg/dL (0.55-1.30); GLUCOSE 177 mg/dL (70-99); POTASSIUM 3.7 mmol/L (3.5-5.1); SODIUM SERUM 143 mmol/L (136-145); UREA NITROGEN, BLOOD 25 mg/dL (8-21)
[2017-08-22] MEDS: OSELTAMIVIR PHOSPHATE 75 MG CAPSULE PO SCH ×2 (08:55→22:05)
[2017-08-22] MEDS: ENALAPRIL MALEATE 10 MG TABLET (VASOTEC) PO SCH (08:55)
[2017-08-22] MEDS: methylPREDNISolone SOD SUCC 40 MG/ML VIAL IVP SCH ×2 (08:55→22:05)
[2017-08-22] MEDS: DILTIAZEM HCL 120 MG CAP.SR.24H PO SCH (08:56)
[2017-08-22] MEDS: FERROUS SULFATE 325 MG TABLET.DR PO SCH ×2 (08:56→22:05)
[2017-08-22] MEDS: FAMOTIDINE 20 MG TABLET PO SCH (08:56)
[2017-08-22] MEDS: CITALOPRAM HYDROBROMIDE 20 MG TABLET PO SCH (08:56)
[2017-08-22] MEDS: DORZOLAMIDE 2% OPHTHALMIC SOLN 5ML OP SCH ×2 (09:00→21:00)
[2017-08-22] MEDS: CLOPIDOGREL BISULFATE 75 MG TABLET PO SCH (10:12)
[2017-08-22] MEDS: ACETAMINOPHEN 325 MG TABLET PO PRN (12:44)
[2017-08-22] MEDS: LATANOPROST 2.5 ML DROPS (XALATAN) OP SCH (21:00)
[2017-08-22] MEDS: QUEtiapine FUMARATE 100 MG TABLET PO SCH (22:05)
[2017-08-22] MEDS: DONEPEZIL HCL 5 MG TABLET (ARICEPT) PO SCH (22:05)
[2017-08-23 00:59] VITALS: BP_SYST 179
[2017-08-23] MEDS: IPRATROPIUM/ALBUTEROL SULFATE 3 ML AMPUL.NEB INH SCH ×6 (03:59→23:13)
[2017-08-23 04:30] VITALS: BP_SYST 157
[2017-08-23] MEDS: NACL 0.9% 1,000 ML IV SCH ×3 (04:49→20:42)
[2017-08-23] MEDS: LEVOTHYROXINE SODIUM 0.1 MG TABLET PO SCH (06:06)
[2017-08-23 08:00] VITALS: BP_SYST 180
[2017-08-23] MEDS: methylPREDNISolone SOD SUCC 40 MG/ML VIAL IVP SCH ×2 (08:47→20:43)
[2017-08-23] MEDS: ENALAPRIL MALEATE 10 MG TABLET (VASOTEC) PO SCH (08:48)
[2017-08-23] MEDS: DILTIAZEM HCL 120 MG CAP.SR.24H PO SCH (08:48)
[2017-08-23] MEDS: FERROUS SULFATE 325 MG TABLET.DR PO SCH ×2 (08:53→20:42)
[2017-08-23] MEDS: OSELTAMIVIR PHOSPHATE 75 MG CAPSULE PO SCH ×2 (08:53→20:42)
[2017-08-23] MEDS: CITALOPRAM HYDROBROMIDE 20 MG TABLET PO SCH (08:53)
[2017-08-23] MEDS: CLOPIDOGREL BISULFATE 75 MG TABLET PO SCH (09:00)
[2017-08-23] MEDS: FAMOTIDINE 20 MG TABLET PO SCH (09:00)
[2017-08-23] MEDS: DORZOLAMIDE 2% OPHTHALMIC SOLN 5ML OP SCH ×2 (10:48→20:43)
[2017-08-23] MEDS ORDERED: hydrALAZINE HCL 20 MG/ML VIAL ONE (12:09)
[2017-08-23] MEDS ORDERED: hydrALAZINE HCL 20 MG/ML VIAL IVP PRN (12:15)
[2017-08-23 12:34] VITALS: BP_SYST 185
[2017-08-23 16:33] VITALS: BP_SYST 183
[2017-08-23] MEDS ORDERED: ALPRAZolam 0.25 MG TABLET PO SCH (18:00)
[2017-08-23] MEDS ORDERED: ALPRAZolam 0.25 MG TABLET ONE (18:01)
[2017-08-23 19:47] LABS: INR 1.1 (0.8-1.2)
[2017-08-23 20:00] VITALS: BP_SYST 145
[2017-08-23] MEDS: QUEtiapine FUMARATE 100 MG TABLET PO SCH (20:42)
[2017-08-23] MEDS: DONEPEZIL HCL 5 MG TABLET (ARICEPT) PO SCH (20:42)
[2017-08-23] MEDS: LATANOPROST 2.5 ML DROPS (XALATAN) OP SCH (20:43)
[2017-08-24 00:12] VITALS: BP_SYST 156
[2017-08-24] MEDS: IPRATROPIUM/ALBUTEROL SULFATE 3 ML AMPUL.NEB INH SCH ×3 (04:18→11:29)
[2017-08-24 06:50] LABS: BASOPHILS # (AUTO) 0.1 K/uL (0.0-0.2); BASOPHILS % (AUTO) 0.6 % (0.0-2.0); HEMATOCRIT 35.2 % (36-48); HEMOGLOBIN 11.6 g/dL (12.0-16.0); LYMPHOCYTES # (AUTO) 0.3 K/uL (1.0-5.5); LYMPHOCYTES % (AUTO) 3.5 % (20.5-51.5); MEAN CORPUSCULAR HEMOGLOBIN 29 pg (27-31); MEAN CORPUSCULAR HGB CONC 33 % (32-36); MEAN CORPUSCULAR VOLUME 87 fL (79.0-98.0); MONOCYTES # (AUTO) 0.9 K/uL (0.0-1.0); MONOCYTES % (AUTO) 9.3 % (1.7-9.3); NEUTROPHILS # (AUTO) 8.6 K/uL (1.8-7.7); NEUTROPHILS % (AUTO) 86.6 % (40.0-70.0); PLATELET COUNT (AUTO) 293 K/uL (130-430); RED BLOOD CELL COUNT(AUTO) 4.05 MIL/uL (4.2-6.2); WHITE BLOOD COUNT (AUTO) 9.9 K/uL (4.8-10.8)
[2017-08-24 06:55] LABS: AMYLASE 31 U/L (0-100); ANION GAP 4 (5-15); CALCIUM 9.2 mg/dL (8.4-11.0); CHLORIDE 112 mmol/L (98-107); CREATININE 0.73 mg/dL (0.55-1.30); GLUCOSE 170 mg/dL (70-99); LIPASE 136 U/L (73-393); POTASSIUM 3.6 mmol/L (3.5-5.1); SODIUM SERUM 138 mmol/L (136-145); UREA NITROGEN, BLOOD 24 mg/dL (8-21)
[2017-08-24] MEDS: LEVOTHYROXINE SODIUM 0.1 MG TABLET PO SCH (07:00)
[2017-08-24 07:59] VITALS: BP_SYST 178
[2017-08-24 08:38] LABS: ANION GAP 7 (5-15); CALCIUM 9.6 mg/dL (8.4-11.0); CHLORIDE 110 mmol/L (98-107); CREATININE 0.65 mg/dL (0.55-1.30); GLUCOSE 163 mg/dL (70-99); POTASSIUM 3.5 mmol/L (3.5-5.1); SODIUM SERUM 139 mmol/L (136-145); UREA NITROGEN, BLOOD 24 mg/dL (8-21)
[2017-08-24 08:43] LABS: ALANINE AMINOTRANSFERASE 28 U/L (12-78); ALBUMIN 2.6 g/dL (3.4-4.8); ASPARTATE AMINOTRANSFERASE 17 U/L (10-37); TOTAL BILIRUBIN 0.4 mg/dL (0.0-1.0)
[2017-08-24] MEDS: methylPREDNISolone SOD SUCC 40 MG/ML VIAL IVP SCH (09:24)
[2017-08-24] MEDS: DILTIAZEM HCL 120 MG CAP.SR.24H PO SCH (09:25)
[2017-08-24] MEDS: ENALAPRIL MALEATE 10 MG TABLET (VASOTEC) PO SCH (09:25)
[2017-08-24] MEDS: NACL 0.9% 1,000 ML IV SCH (09:33)
[2017-08-24] MEDS: DORZOLAMIDE 2% OPHTHALMIC SOLN 5ML OP SCH (09:36)
[2017-08-24 11:57] VITALS: BP_SYST 160
[2017-08-24] MEDS ORDERED: cefTRIAXone 1 GM in D5W 50 ML IV ONE (12:00)
[2017-08-24] MEDS: FAMOTIDINE 20 MG TABLET PO SCH (13:17)
[2017-08-24] MEDS: CLOPIDOGREL BISULFATE 75 MG TABLET PO SCH (13:17)
[2017-08-24] MEDS: FERROUS SULFATE 325 MG TABLET.DR PO SCH (13:17)
[2017-08-24] MEDS: CITALOPRAM HYDROBROMIDE 20 MG TABLET PO SCH (13:17)
[2017-08-24] MEDS ORDERED: LEVO500T20 PO (15:24)
[2017-08-24] MEDS ORDERED: FLA250 PO (15:24)
[2017-08-24] MEDS ORDERED: PHEDM120 PO (15:25)
[2017-08-24] MEDS ORDERED: METH4TAB3 PO (15:25)
[2017-08-24 15:26] VITALS: BP_SYST 150
[2017-08-24 16:26] VITALS: BP_SYST 134
[2017-08-25] MEDS ORDERED: cefTRIAXone 1 GM in D5W 50 ML IV SCH (09:00)
== END 2017-08-24 16:15 | disposition home health service (06) | DRG 194 ==
LOC: SED 02:14 → STU 02:55 → SMU 08-22 14:56
PROVIDERS: ADMIT Internal Medicine; ATTEND Internal Medicine
DX: J10.08 Influenza due to other identified influenza virus with other specified pneumonia (principal); E44.0 Moderate protein-calorie malnutrition; K80.12 Calculus of gallbladder with acute and chronic cholecystitis without obstruction; J44.0 Chronic obstructive pulmonary disease with (acute) lower respiratory infection; R06.03 Acute respiratory distress; J45.901 Unspecified asthma with (acute) exacerbation; E87.1 Hypo-osmolality and hyponatremia; J12.9 Viral pneumonia, unspecified; E03.9 Hypothyroidism, unspecified; H91.3 Deaf nonspeaking, not elsewhere classified; M81.0 Age-related osteoporosis without current pathological fracture; E11.9 Type 2 diabetes mellitus without complications; F03.90 Unspecified dementia, unspecified severity, without behavioral disturbance, psychotic disturbance, mood disturbance, and anxiety; I10 Essential (primary) hypertension; H54.8 Legal blindness, as defined in USA; Z87.891 Personal history of nicotine dependence; Z68.25 Body mass index [BMI] 25.0-25.9, adult
CPT/HCPCS: 36415; 36600; 71045; 76700-TC; 78226; 80048; 80053; 81000-TC; 82150-TC; 82803-TC; 83605; 83690-TC; 84484; 85007; 85025; 85027; 85610-TC; 85730-TC; 86710; 87040-TC; 87081; 87086; 93005; 94640; 94760; 96365; 96366; 96375; 97110-GP; 97116-GP; 97530-GP; 99285; A9537; G9035; J0360; J0696; J1030; J2930; J3475; J3480; J7030; J7050; J7060

== ENCOUNTER 2018-01-02 09:06 | Inpatient (IN) | payer OTHER, MEDICAID ==
[~2018-01-02] VITALS: Ht 149.9 cm; Wt 54.4 kg
[2018-01-02 09:06] VITALS: BP_SYST 164
[~2018-01-02 09:06] MED LIST changes: -ALPHAGAN1 OP; +CAT.1 PO; -CETI1TAB2 PO; +CLOP75TA2 PO; -DILT120C89 PO; +DONE5TAB3 PO; -ERGO8000 PO; -LACT1CAP57 PO; -LEVO500T20 PO; -METHYLPREDNISOLONE; -MUPI1OIN4; +PHEDM120 PO; -PROMETHAZINE CODEINE PO; -TRAV2.5D OP
[2018-01-02] MEDS ORDERED: MORPHINE 4 MG/ML INJ. SYRINGE IVP ONE (09:15)
[2018-01-02] MEDS ORDERED: ONDANSETRON HCL 4 MG/2 ML VIAL IVP ONE (09:15)
[2018-01-02] MEDS ORDERED: NACL 0.9% 1,000 ML IV ONE ×2 (09:15→10:00)
[2018-01-02] MEDS ORDERED: NITROGLYCERIN 0.4 MG TAB.SUBL SL ONE (09:30)
[2018-01-02 09:44] LABS: BASOPHILS # (AUTO) 0.2 K/uL (0.0-0.2); BASOPHILS % (AUTO) 0.7 % (0.0-2.0); HEMATOCRIT 39.8 % (36-48); HEMOGLOBIN 13.3 g/dL (12.0-16.0); LYMPHOCYTES # (AUTO) 0.7 K/uL (1.0-5.5); LYMPHOCYTES % (AUTO) 2.5 % (20.5-51.5); MEAN CORPUSCULAR HEMOGLOBIN 30 pg (27-31); MEAN CORPUSCULAR HGB CONC 33 % (32-36); MEAN CORPUSCULAR VOLUME 88 fL (79.0-98.0); MONOCYTES # (AUTO) 0.7 K/uL (0.0-1.0); MONOCYTES % (AUTO) 2.6 % (1.7-9.3); NEUTROPHILS # (AUTO) 24.5 K/uL (1.8-7.7); NEUTROPHILS % (AUTO) 94.2 % (40.0-70.0); PLATELET COUNT (AUTO) 297 K/uL (130-430); RED BLOOD CELL COUNT(AUTO) 4.51 MIL/uL (4.2-6.2); RED CELL DISTRIBUTION WIDTH 12.7 % (9.0-15.0); WHITE BLOOD COUNT (AUTO) 26.1 K/uL (4.8-10.8)
[2018-01-02 09:54] LABS: ANION GAP 14 (5-15); CALCIUM 9.9 mg/dL (8.4-11.0); CHLORIDE 103 mmol/L (98-107); CREATININE 1.06 mg/dL (0.55-1.30); GLUCOSE 218 mg/dL (70-99); POTASSIUM 3.5 mmol/L (3.5-5.1); SODIUM SERUM 138 mmol/L (136-145); UREA NITROGEN, BLOOD 14 mg/dL (8-21)
[2018-01-02 09:59] LABS: BILIRUBIN,URINE NEGATIVE (NEGATIVE); BLOOD, URINE NEGATIVE (NEGATIVE); CLARITY/URINE CLEAR (CLEAR); COLOR,URINE YELLOW (YELLOW); GLUCOSE,URINE NEGATIVE (NEGATIVE); KETONES,URINE NEGATIVE (NEGATIVE); LEUKOCYTE ESTERASE ,URINE NEGATIVE (NEGATIVE); NITRITE, URINE NEGATIVE (NEGATIVE); PH,URINE 6.5 (5.0-8.0); PROTEIN URINE TRACE (NEGATIVE); UROBILINOGEN,URINE 0.2 (0.2-1.0)
[2018-01-02 10:00] LABS: PROTHROMBIN TIME 10.4 SECS (9.5-12.5)
[2018-01-02] MEDS ORDERED: VANCOMYCIN HCL 1,000 MG in NS 250 ML IV ONE (10:00)
[2018-01-02] MEDS ORDERED: PIPERACILLIN/TAZOBACTAM 3.375 GM/VIAL (ZOSYN) IV ONE (10:00)
[2018-01-02] MEDS ORDERED: PIPERACILLIN/TAZO 3.375 GM in NS 50 ML IV ONE (10:00)
[2018-01-02] MEDS ORDERED: VANCOMYCIN HCL 1000 MG/VIAL IV ONE (10:02)
[2018-01-02 10:05] LABS: ALANINE AMINOTRANSFERASE 16 U/L (12-78); ALBUMIN 3.2 g/dL (3.4-4.8); ASPARTATE AMINOTRANSFERASE 13 U/L (10-37); TOTAL BILIRUBIN 0.5 mg/dL (0.0-1.0)
[2018-01-02] MEDS ORDERED: ERGO500043 PO (10:05)
[2018-01-02] MEDS ORDERED: NS 250 ML IV ONE (10:30)
[2018-01-02] MEDS ORDERED: IPRATROPIUM/ALBUTEROL SULFATE 3 ML AMPUL.NEB INH ONE (10:30)
[2018-01-02 12:04] VITALS: BP_SYST 140
[2018-01-02 12:12] VITALS: BP_SYST 140
[2018-01-02] MEDS ORDERED: NS 500 ML IV ONE (12:45)
[2018-01-02 14:10] VITALS: BP_SYST 140
[2018-01-02] MEDS: PROMETHAZINE-DM 6.25 MG-15 MG/5 ML UDC PO SCH ×3 (14:26→21:00)
[2018-01-02 15:40] VITALS: BP_SYST 161
[2018-01-02] MEDS: cloNIDine HCL 0.1 MG TABLET PO PRN (15:47)
[2018-01-02] MEDS: IPRATROPIUM/ALBUTEROL SULFATE 3 ML AMPUL.NEB INH PRN (16:18)
[2018-01-02] MEDS ORDERED: cefTRIAXone 1 GM in D5W 50 ML IV ONE (16:45)
[2018-01-02] MEDS ORDERED: cefTRIAXone 1 GM in D5W 50 ML IV SCH (16:45)
[2018-01-02] MEDS: guaiFENesin 200 MG/10 ML UDC PO SCH ×2 (16:49→21:18)
[2018-01-02] MEDS: NACL 0.9% 1,000 ML IV SCH ×2 (16:52→21:17)
[2018-01-02] MEDS ORDERED: PIPERACILLIN/TAZO 3.375/DEX-IS 50 ML IV SCH (18:00)
[2018-01-02] MEDS: IPRATROPIUM/ALBUTEROL SULFATE 3 ML AMPUL.NEB INH SCH (19:25)
[2018-01-02 20:06] VITALS: BP_SYST 145
[2018-01-02] MEDS: QUEtiapine FUMARATE 100 MG TABLET PO SCH (21:18)
[2018-01-02] MEDS: DONEPEZIL HCL 5 MG TABLET (ARICEPT) PO SCH (21:18)
[2018-01-02] MEDS: FERROUS SULFATE 325 MG TABLET.DR PO SCH (21:18)
[2018-01-02] MEDS: DORZOLAMIDE 2% OPHTHALMIC SOLN 5ML OP SCH (21:19)
[2018-01-02] MEDS: LATANOPROST 2.5 ML DROPS (XALATAN) OP SCH (21:20)
[2018-01-03] VITALS (7 sets, daily range): BP systolic 127–166
[2018-01-03] MEDS: IPRATROPIUM/ALBUTEROL SULFATE 3 ML AMPUL.NEB INH SCH ×4 (00:52→20:06)
[2018-01-03] MEDS: LEVOTHYROXINE SODIUM 0.1 MG TABLET PO SCH (06:06)
[2018-01-03] MEDS: NACL 0.9% 1,000 ML IV SCH ×2 (08:21→18:21)
[2018-01-03] MEDS: cefTRIAXone 1 GM in D5W 50 ML IV SCH (08:22)
[2018-01-03] MEDS: DORZOLAMIDE 2% OPHTHALMIC SOLN 5ML OP SCH ×2 (08:23→20:51)
[2018-01-03] MEDS: FERROUS SULFATE 325 MG TABLET.DR PO SCH ×2 (08:23→20:49)
[2018-01-03] MEDS: ENALAPRIL MALEATE 10 MG TABLET (VASOTEC) PO SCH (08:24)
[2018-01-03] MEDS: guaiFENesin 200 MG/10 ML UDC PO SCH ×4 (08:24→20:49)
[2018-01-03] MEDS: FAMOTIDINE 20 MG TABLET PO SCH (08:24)
[2018-01-03] MEDS: ENOXAPARIN SODIUM 30 MG/0.3 ML SYRINGE SUBCUT SCH (08:25)
[2018-01-03] MEDS: CLOPIDOGREL BISULFATE 75 MG TABLET PO SCH (08:25)
[2018-01-03] MEDS ORDERED: LEVOCETIRIZINE DIHYDROCHLORIDE 5 MG PO SCH (09:00)
[2018-01-03 09:46] LABS: BASOPHILS % (AUTO) 0.1 % (0.0-2.0); EOSINOPHILS # (AUTO) 0.2 K/uL (0.0-0.4); EOSINOPHILS % (AUTO) 1.2 % (0.0-4.0); HEMATOCRIT 34.6 % (36-48); HEMOGLOBIN 11.8 g/dL (12.0-16.0); LYMPHOCYTES # (AUTO) 1.7 K/uL (1.0-5.5); LYMPHOCYTES % (AUTO) 9.6 % (20.5-51.5); MEAN CORPUSCULAR HEMOGLOBIN 30 pg (27-31); MEAN CORPUSCULAR HGB CONC 34 % (32-36); MEAN CORPUSCULAR VOLUME 89 fL (79.0-98.0); MONOCYTES # (AUTO) 1.4 K/uL (0.0-1.0); MONOCYTES % (AUTO) 8.4 % (1.7-9.3); NEUTROPHILS # (AUTO) 13.9 K/uL (1.8-7.7); NEUTROPHILS % (AUTO) 80.7 % (40.0-70.0); PLATELET COUNT (AUTO) 236 K/uL (130-430); RED BLOOD CELL COUNT(AUTO) 3.89 MIL/uL (4.2-6.2); RED CELL DISTRIBUTION WIDTH 12.8 % (9.0-15.0); WHITE BLOOD COUNT (AUTO) 17.2 K/uL (4.8-10.8)
[2018-01-03] MEDS: VANCOMYCIN HCL 750 MG in NS 250 ML IV SCH (09:56)
[2018-01-03 10:00] LABS: ANION GAP 11 (5-15); CALCIUM 8.5 mg/dL (8.4-11.0); CHLORIDE 105 mmol/L (98-107); CREATININE 0.78 mg/dL (0.55-1.30); GLUCOSE 125 mg/dL (70-99); POTASSIUM 3.5 mmol/L (3.5-5.1); SODIUM SERUM 138 mmol/L (136-145); UREA NITROGEN, BLOOD 11 mg/dL (8-21)
[2018-01-03] MEDS: PROMETHAZINE-DM 6.25 MG-15 MG/5 ML UDC PO SCH ×4 (10:35→20:49)
[2018-01-03] MEDS: IPRATROPIUM/ALBUTEROL SULFATE 3 ML AMPUL.NEB INH PRN (13:07)
[2018-01-03] MEDS: cloNIDine HCL 0.1 MG TABLET PO PRN (15:38)
[2018-01-03] MEDS: QUEtiapine FUMARATE 100 MG TABLET PO SCH (20:49)
[2018-01-03] MEDS: DONEPEZIL HCL 5 MG TABLET (ARICEPT) PO SCH (20:49)
[2018-01-03] MEDS: LATANOPROST 2.5 ML DROPS (XALATAN) OP SCH (20:50)
[2018-01-04] MEDS: cloNIDine HCL 0.1 MG TABLET PO PRN ×2 (00:05→22:38)
[2018-01-04] MEDS: IPRATROPIUM/ALBUTEROL SULFATE 3 ML AMPUL.NEB INH SCH ×4 (01:00→19:36)
[2018-01-04 01:02] VITALS: BP_SYST 146
[2018-01-04] MEDS: NACL 0.9% 1,000 ML IV SCH ×2 (04:13→15:32)
[2018-01-04 07:38] LABS: BASOPHILS % (AUTO) 0.2 % (0.0-2.0); EOSINOPHILS # (AUTO) 0.2 K/uL (0.0-0.4); EOSINOPHILS % (AUTO) 1.6 % (0.0-4.0); HEMATOCRIT 32.3 % (36-48); HEMOGLOBIN 10.8 g/dL (12.0-16.0); LYMPHOCYTES # (AUTO) 1.3 K/uL (1.0-5.5); LYMPHOCYTES % (AUTO) 10.4 % (20.5-51.5); MEAN CORPUSCULAR HEMOGLOBIN 30 pg (27-31); MEAN CORPUSCULAR HGB CONC 34 % (32-36); MEAN CORPUSCULAR VOLUME 90 fL (79.0-98.0); MONOCYTES # (AUTO) 1.4 K/uL (0.0-1.0); MONOCYTES % (AUTO) 11.5 % (1.7-9.3); NEUTROPHILS # (AUTO) 9.4 K/uL (1.8-7.7); NEUTROPHILS % (AUTO) 76.3 % (40.0-70.0); PLATELET COUNT (AUTO) 241 K/uL (130-430); RED CELL DISTRIBUTION WIDTH 12.8 % (9.0-15.0); WHITE BLOOD COUNT (AUTO) 12.3 K/uL (4.8-10.8)
[2018-01-04 07:42] LABS: ANION GAP 9 (5-15); CALCIUM 8.5 mg/dL (8.4-11.0); CHLORIDE 110 mmol/L (98-107); CREATININE 0.74 mg/dL (0.55-1.30); GLUCOSE 98 mg/dL (70-99); POTASSIUM 3.6 mmol/L (3.5-5.1); SODIUM SERUM 141 mmol/L (136-145); UREA NITROGEN, BLOOD 11 mg/dL (8-21)
[2018-01-04 09:21] VITALS: BP_SYST 172
[2018-01-04] MEDS: cefTRIAXone 1 GM in D5W 50 ML IV SCH (09:23)
[2018-01-04] MEDS: ENOXAPARIN SODIUM 30 MG/0.3 ML SYRINGE SUBCUT SCH (09:23)
[2018-01-04] MEDS: FERROUS SULFATE 325 MG TABLET.DR PO SCH ×2 (09:24→20:14)
[2018-01-04] MEDS: FAMOTIDINE 20 MG TABLET PO SCH (09:24)
[2018-01-04] MEDS: ENALAPRIL MALEATE 10 MG TABLET (VASOTEC) PO SCH (09:24)
[2018-01-04] MEDS: DORZOLAMIDE 2% OPHTHALMIC SOLN 5ML OP SCH ×2 (09:24→20:14)
[2018-01-04] MEDS: CLOPIDOGREL BISULFATE 75 MG TABLET PO SCH (09:25)
[2018-01-04] MEDS: PROMETHAZINE-DM 6.25 MG-15 MG/5 ML UDC PO SCH ×4 (09:25→20:16)
[2018-01-04] MEDS: LEVOTHYROXINE SODIUM 0.1 MG TABLET PO SCH (09:25)
[2018-01-04] MEDS: guaiFENesin 200 MG/10 ML UDC PO SCH ×4 (09:27→20:15)
[2018-01-04] MEDS: VANCOMYCIN HCL 750 MG in NS 250 ML IV SCH (09:42)
[2018-01-04] MEDS ORDERED: LORATADINE 10 MG TABLET PO ONE (09:45)
[2018-01-04 12:00] VITALS: BP_SYST 160
[2018-01-04 14:52] VITALS: BP_SYST 155
[2018-01-04 20:00] VITALS: BP_SYST 155
[2018-01-04] MEDS: LATANOPROST 2.5 ML DROPS (XALATAN) OP SCH (20:14)
[2018-01-04] MEDS: DONEPEZIL HCL 5 MG TABLET (ARICEPT) PO SCH (20:14)
[2018-01-04] MEDS: QUEtiapine FUMARATE 100 MG TABLET PO SCH (20:14)
[2018-01-05] VITALS (7 sets, daily range): BP systolic 123–189
[2018-01-05] MEDS: IPRATROPIUM/ALBUTEROL SULFATE 3 ML AMPUL.NEB INH SCH ×4 (00:37→19:55)
[2018-01-05] MEDS: NACL 0.9% 1,000 ML IV SCH ×3 (00:38→21:08)
[2018-01-05] MEDS: LEVOTHYROXINE SODIUM 0.1 MG TABLET PO SCH (06:17)
[2018-01-05] MEDS: ENOXAPARIN SODIUM 30 MG/0.3 ML SYRINGE SUBCUT SCH (09:13)
[2018-01-05] MEDS: CLOPIDOGREL BISULFATE 75 MG TABLET PO SCH (09:14)
[2018-01-05] MEDS: FAMOTIDINE 20 MG TABLET PO SCH (09:14)
[2018-01-05] MEDS: FERROUS SULFATE 325 MG TABLET.DR PO SCH ×2 (09:14→20:41)
[2018-01-05] MEDS: guaiFENesin 200 MG/10 ML UDC PO SCH ×4 (09:14→20:41)
[2018-01-05] MEDS: LORATADINE 10 MG TABLET PO SCH (09:14)
[2018-01-05] MEDS: ENALAPRIL MALEATE 10 MG TABLET (VASOTEC) PO SCH (09:14)
[2018-01-05] MEDS: cefTRIAXone 1 GM in D5W 50 ML IV SCH (09:15)
[2018-01-05] MEDS: DORZOLAMIDE 2% OPHTHALMIC SOLN 5ML OP SCH ×2 (09:16→20:39)
[2018-01-05] MEDS: PROMETHAZINE-DM 6.25 MG-15 MG/5 ML UDC PO SCH ×4 (09:17→20:41)
[2018-01-05] MEDS: VANCOMYCIN HCL 750 MG in NS 250 ML IV SCH (10:32)
[2018-01-05] MEDS: cloNIDine HCL 0.1 MG TABLET PO PRN (16:14)
[2018-01-05] MEDS ORDERED: METOPROLOL TARTRATE 50 MG TABLET PO ONE (18:15)
[2018-01-05] MEDS ORDERED: BISACODYL 10 MG/SUPPOSITORY RC ONE (18:15)
[2018-01-05] MEDS ORDERED: BISACODYL 10 MG/SUPPOSITORY RC PRN (18:15)
[2018-01-05] MEDS ORDERED: ONDANSETRON HCL 4 MG/2 ML VIAL ONE (18:37)
[2018-01-05] MEDS: LATANOPROST 2.5 ML DROPS (XALATAN) OP SCH (20:40)
[2018-01-05] MEDS: DONEPEZIL HCL 5 MG TABLET (ARICEPT) PO SCH (20:41)
[2018-01-05] MEDS: QUEtiapine FUMARATE 100 MG TABLET PO SCH (20:41)
[2018-01-05] MEDS: METOPROLOL TARTRATE 50 MG TABLET PO SCH (21:00)
[2018-01-05] MEDS: metroNIDAZOLE 250 mg/NS 50 ML IV SCH (21:10)
[2018-01-06] MEDS: IPRATROPIUM/ALBUTEROL SULFATE 3 ML AMPUL.NEB INH SCH ×4 (01:00→18:48)
[2018-01-06] MEDS: metroNIDAZOLE 250 mg/NS 50 ML IV SCH ×3 (05:04→22:06)
[2018-01-06] MEDS: LEVOTHYROXINE SODIUM 0.1 MG TABLET PO SCH (06:07)
[2018-01-06] MEDS: NACL 0.9% 1,000 ML IV SCH ×2 (06:14→17:58)
[2018-01-06 07:10] LABS: HEMATOCRIT 32.9 % (36-48); HEMOGLOBIN 11.1 g/dL (12.0-16.0); MEAN CORPUSCULAR HEMOGLOBIN 30 pg (27-31); MEAN CORPUSCULAR HGB CONC 34 % (32-36); MEAN CORPUSCULAR VOLUME 89 fL (79.0-98.0); PLATELET COUNT (AUTO) 304 K/uL (130-430); RED CELL DISTRIBUTION WIDTH 13.3 % (9.0-15.0); WHITE BLOOD COUNT (AUTO) 9.9 K/uL (4.8-10.8)
[2018-01-06 08:05] VITALS: BP_SYST 162
[2018-01-06] MEDS ORDERED: ERGOCALCIFEROL 8000 UNITS/ML ORAL SOLUTION, 60 ML BOTTLE PO SCH (09:00)
[2018-01-06 09:38] LABS: BAND % (MANUAL) 3 % (0-6); EOSINOPHILS % (MANUAL) 3 % (0-7); LYMPHOCYTES % (MANUAL) 13 % (20-46); MONOCYTES % (MANUAL) 18 % (0-11)
[2018-01-06 09:39] LABS: BASOPHILS % (MANUAL) 0 % (0-2)
[2018-01-06] MEDS: cefTRIAXone 1 GM in D5W 50 ML IV SCH (09:40)
[2018-01-06] MEDS: LORATADINE 10 MG TABLET PO SCH (09:40)
[2018-01-06] MEDS: guaiFENesin 200 MG/10 ML UDC PO SCH ×4 (09:40→22:04)
[2018-01-06] MEDS: CLOPIDOGREL BISULFATE 75 MG TABLET PO SCH (09:41)
[2018-01-06] MEDS: ENALAPRIL MALEATE 10 MG TABLET (VASOTEC) PO SCH (09:41)
[2018-01-06] MEDS: METOPROLOL TARTRATE 50 MG TABLET PO SCH ×2 (09:43→22:04)
[2018-01-06] MEDS: ENOXAPARIN SODIUM 30 MG/0.3 ML SYRINGE SUBCUT SCH (09:43)
[2018-01-06] MEDS: PROMETHAZINE-DM 6.25 MG-15 MG/5 ML UDC PO SCH ×4 (09:43→22:05)
[2018-01-06] MEDS: FAMOTIDINE 20 MG TABLET PO SCH (09:43)
[2018-01-06] MEDS: DORZOLAMIDE 2% OPHTHALMIC SOLN 5ML OP SCH ×2 (09:46→22:07)
[2018-01-06] MEDS: FERROUS SULFATE 325 MG TABLET.DR PO SCH ×2 (09:50→22:04)
[2018-01-06 12:05] VITALS: BP_SYST 158
[2018-01-06 16:30] VITALS: BP_SYST 125
[2018-01-06 20:00] VITALS: BP_SYST 151
[2018-01-06] MEDS: QUEtiapine FUMARATE 100 MG TABLET PO SCH (22:04)
[2018-01-06] MEDS: LATANOPROST 2.5 ML DROPS (XALATAN) OP SCH (22:07)
[2018-01-06] MEDS: DONEPEZIL HCL 5 MG TABLET (ARICEPT) PO SCH (22:08)
[2018-01-07] VITALS (9 sets, daily range): BP systolic 148–185
[2018-01-07] MEDS: IPRATROPIUM/ALBUTEROL SULFATE 3 ML AMPUL.NEB INH SCH ×4 (00:47→19:38)
[2018-01-07] MEDS: NACL 0.9% 1,000 ML IV SCH ×2 (05:36→17:31)
[2018-01-07] MEDS: LEVOTHYROXINE SODIUM 0.1 MG TABLET PO SCH (06:14)
[2018-01-07] MEDS: metroNIDAZOLE 250 mg/NS 50 ML IV SCH ×3 (06:14→21:34)
[2018-01-07] MEDS: LORATADINE 10 MG TABLET PO SCH (08:11)
[2018-01-07] MEDS: guaiFENesin 200 MG/10 ML UDC PO SCH ×4 (08:11→20:47)
[2018-01-07] MEDS: cefTRIAXone 1 GM in D5W 50 ML IV SCH (08:11)
[2018-01-07] MEDS: FERROUS SULFATE 325 MG TABLET.DR PO SCH ×2 (08:12→20:47)
[2018-01-07] MEDS: METOPROLOL TARTRATE 50 MG TABLET PO SCH ×2 (08:14→20:48)
[2018-01-07] MEDS: CLOPIDOGREL BISULFATE 75 MG TABLET PO SCH (08:14)
[2018-01-07] MEDS: ENALAPRIL MALEATE 10 MG TABLET (VASOTEC) PO SCH (08:15)
[2018-01-07] MEDS: FAMOTIDINE 20 MG TABLET PO SCH (08:15)
[2018-01-07] MEDS: ENOXAPARIN SODIUM 30 MG/0.3 ML SYRINGE SUBCUT SCH (08:15)
[2018-01-07] MEDS: DORZOLAMIDE 2% OPHTHALMIC SOLN 5ML OP SCH ×2 (08:16→20:43)
[2018-01-07] MEDS: PROMETHAZINE-DM 6.25 MG-15 MG/5 ML UDC PO SCH ×4 (08:16→20:47)
[2018-01-07] MEDS: cloNIDine HCL 0.1 MG TABLET PO PRN ×3 (13:33→23:16)
[2018-01-07] MEDS: QUEtiapine FUMARATE 25 MG TABLET PO SCH (14:25)
[2018-01-07] MEDS: LATANOPROST 2.5 ML DROPS (XALATAN) OP SCH (20:46)
[2018-01-07] MEDS: DONEPEZIL HCL 5 MG TABLET (ARICEPT) PO SCH (20:47)
[2018-01-07] MEDS: QUEtiapine FUMARATE 100 MG TABLET PO SCH (20:48)
[2018-01-08 00:32] VITALS: BP_SYST 158
[2018-01-08] MEDS: IPRATROPIUM/ALBUTEROL SULFATE 3 ML AMPUL.NEB INH SCH ×4 (01:16→18:45)
[2018-01-08 04:00] VITALS: BP_SYST 150
[2018-01-08] MEDS: metroNIDAZOLE 250 mg/NS 50 ML IV SCH ×3 (05:24→21:08)
[2018-01-08] MEDS: NACL 0.9% 1,000 ML IV SCH ×3 (05:24→18:18)
[2018-01-08 06:02] LABS: BASOPHILS # (AUTO) 0.1 K/uL (0.0-0.2); BASOPHILS % (AUTO) 0.7 % (0.0-2.0); EOSINOPHILS # (AUTO) 0.3 K/uL (0.0-0.4); EOSINOPHILS % (AUTO) 2.4 % (0.0-4.0); HEMATOCRIT 30.1 % (36-48); HEMOGLOBIN 10.1 g/dL (12.0-16.0); LYMPHOCYTES # (AUTO) 1.8 K/uL (1.0-5.5); LYMPHOCYTES % (AUTO) 15.8 % (20.5-51.5); MEAN CORPUSCULAR HEMOGLOBIN 30 pg (27-31); MEAN CORPUSCULAR HGB CONC 34 % (32-36); MEAN CORPUSCULAR VOLUME 90 fL (79.0-98.0); MONOCYTES # (AUTO) 2.1 K/uL (0.0-1.0); MONOCYTES % (AUTO) 17.6 % (1.7-9.3); NEUTROPHILS # (AUTO) 7.4 K/uL (1.8-7.7); NEUTROPHILS % (AUTO) 63.5 % (40.0-70.0); PLATELET COUNT (AUTO) 340 K/uL (130-430); RED BLOOD CELL COUNT(AUTO) 3.36 MIL/uL (4.2-6.2); RED CELL DISTRIBUTION WIDTH 12.7 % (9.0-15.0); WHITE BLOOD COUNT (AUTO) 11.7 K/uL (4.8-10.8)
[2018-01-08 06:04] LABS: ANION GAP 2 (5-15); CHLORIDE 111 mmol/L (98-107); CREATININE 0.78 mg/dL (0.55-1.30); GLUCOSE 104 mg/dL (70-99); POTASSIUM 3.5 mmol/L (3.5-5.1); SODIUM SERUM 135 mmol/L (136-145); UREA NITROGEN, BLOOD 10 mg/dL (8-21)
[2018-01-08] MEDS: LEVOTHYROXINE SODIUM 0.1 MG TABLET PO SCH (06:24)
[2018-01-08 08:00] VITALS: BP_SYST 152
[2018-01-08] MEDS: guaiFENesin 200 MG/10 ML UDC PO SCH ×4 (08:07→21:00)
[2018-01-08] MEDS: FERROUS SULFATE 325 MG TABLET.DR PO SCH ×2 (08:07→20:58)
[2018-01-08] MEDS: ENOXAPARIN SODIUM 30 MG/0.3 ML SYRINGE SUBCUT SCH (08:07)
[2018-01-08] MEDS: FAMOTIDINE 20 MG TABLET PO SCH (08:08)
[2018-01-08] MEDS: CLOPIDOGREL BISULFATE 75 MG TABLET PO SCH (08:08)
[2018-01-08] MEDS: METOPROLOL TARTRATE 50 MG TABLET PO SCH ×2 (08:08→20:59)
[2018-01-08] MEDS: QUEtiapine FUMARATE 25 MG TABLET PO SCH ×2 (08:08→14:37)
[2018-01-08] MEDS: ENALAPRIL MALEATE 10 MG TABLET (VASOTEC) PO SCH (08:08)
[2018-01-08] MEDS: LORATADINE 10 MG TABLET PO SCH (08:08)
[2018-01-08] MEDS: DORZOLAMIDE 2% OPHTHALMIC SOLN 5ML OP SCH ×2 (08:09→20:59)
[2018-01-08] MEDS: PROMETHAZINE-DM 6.25 MG-15 MG/5 ML UDC PO SCH ×4 (08:10→21:00)
[2018-01-08] MEDS: cefTRIAXone 1 GM in D5W 50 ML IV SCH (08:21)
[2018-01-08] MEDS: cloNIDine HCL 0.1 MG TABLET PO PRN ×2 (11:56→18:18)
[2018-01-08 12:00] VITALS: BP_SYST 160
[2018-01-08 16:23] VITALS: BP_SYST 163
[2018-01-08 19:40] VITALS: BP_SYST 170
[2018-01-08] MEDS: DONEPEZIL HCL 5 MG TABLET (ARICEPT) PO SCH (20:59)
[2018-01-08] MEDS: QUEtiapine FUMARATE 100 MG TABLET PO SCH (20:59)
[2018-01-08] MEDS: LATANOPROST 2.5 ML DROPS (XALATAN) OP SCH (21:00)
[2018-01-09 00:02] VITALS: BP_SYST 154; BP_SYST 172
[2018-01-09] MEDS: IPRATROPIUM/ALBUTEROL SULFATE 3 ML AMPUL.NEB INH SCH ×4 (02:10→19:50)
[2018-01-09 03:55] VITALS: BP_SYST 157
[2018-01-09] MEDS: metroNIDAZOLE 250 mg/NS 50 ML IV SCH ×3 (06:03→22:39)
[2018-01-09] MEDS: LEVOTHYROXINE SODIUM 0.1 MG TABLET PO SCH (06:03)
[2018-01-09] MEDS: NACL 0.9% 1,000 ML IV SCH ×2 (06:05→15:09)
[2018-01-09] MEDS: PROMETHAZINE-DM 6.25 MG-15 MG/5 ML UDC PO SCH ×4 (09:04→22:39)
[2018-01-09] MEDS: guaiFENesin 200 MG/10 ML UDC PO SCH ×4 (09:04→22:33)
[2018-01-09] MEDS: DORZOLAMIDE 2% OPHTHALMIC SOLN 5ML OP SCH ×2 (09:05→22:34)
[2018-01-09] MEDS: ENALAPRIL MALEATE 10 MG TABLET (VASOTEC) PO SCH (09:05)
[2018-01-09] MEDS: LORATADINE 10 MG TABLET PO SCH (09:06)
[2018-01-09] MEDS: FAMOTIDINE 20 MG TABLET PO SCH (09:06)
[2018-01-09] MEDS: FERROUS SULFATE 325 MG TABLET.DR PO SCH ×2 (09:06→22:34)
[2018-01-09] MEDS: METOPROLOL TARTRATE 50 MG TABLET PO SCH ×2 (09:06→22:35)
[2018-01-09] MEDS: QUEtiapine FUMARATE 25 MG TABLET PO SCH ×2 (09:06→15:09)
[2018-01-09] MEDS: CLOPIDOGREL BISULFATE 75 MG TABLET PO SCH (09:06)
[2018-01-09] MEDS: cefTRIAXone 1 GM in D5W 50 ML IV SCH (09:07)
[2018-01-09] MEDS: ENOXAPARIN SODIUM 30 MG/0.3 ML SYRINGE SUBCUT SCH (09:07)
[2018-01-09 09:10] VITALS: BP_SYST 161
[2018-01-09 12:45] VITALS: BP_SYST 181
[2018-01-09] MEDS: cloNIDine HCL 0.1 MG TABLET PO PRN (13:13)
[2018-01-09 16:02] VITALS: BP_SYST 155
[2018-01-09 20:00] VITALS: BP_SYST 138
[2018-01-09] MEDS: QUEtiapine FUMARATE 100 MG TABLET PO SCH (22:35)
[2018-01-09] MEDS: DONEPEZIL HCL 5 MG TABLET (ARICEPT) PO SCH (22:36)
[2018-01-09] MEDS: LATANOPROST 2.5 ML DROPS (XALATAN) OP SCH (22:37)
[2018-01-10] VITALS (7 sets, daily range): BP systolic 134–167
[2018-01-10] MEDS: IPRATROPIUM/ALBUTEROL SULFATE 3 ML AMPUL.NEB INH SCH ×4 (01:25→19:00)
[2018-01-10] MEDS: metroNIDAZOLE 250 mg/NS 50 ML IV SCH ×2 (06:04→13:11)
[2018-01-10] MEDS: LEVOTHYROXINE SODIUM 0.1 MG TABLET PO SCH (06:05)
[2018-01-10] MEDS: NACL 0.9% 1,000 ML IV SCH ×2 (06:05→09:57)
[2018-01-10 08:08] LABS: BASOPHILS % (AUTO) 0.3 % (0.0-2.0); EOSINOPHILS # (AUTO) 0.4 K/uL (0.0-0.4); EOSINOPHILS % (AUTO) 4.2 % (0.0-4.0); HEMATOCRIT 30.7 % (36-48); HEMOGLOBIN 10.4 g/dL (12.0-16.0); LYMPHOCYTES # (AUTO) 1.8 K/uL (1.0-5.5); LYMPHOCYTES % (AUTO) 17.5 % (20.5-51.5); MEAN CORPUSCULAR HEMOGLOBIN 30 pg (27-31); MEAN CORPUSCULAR HGB CONC 34 % (32-36); MEAN CORPUSCULAR VOLUME 88 fL (79.0-98.0); MONOCYTES # (AUTO) 1.3 K/uL (0.0-1.0); MONOCYTES % (AUTO) 12.8 % (1.7-9.3); NEUTROPHILS # (AUTO) 6.5 K/uL (1.8-7.7); NEUTROPHILS % (AUTO) 65.2 % (40.0-70.0); PLATELET COUNT (AUTO) 393 K/uL (130-430); RED CELL DISTRIBUTION WIDTH 13.1 % (9.0-15.0)
[2018-01-10 08:16] LABS: ANION GAP 6 (5-15); CALCIUM 9.2 mg/dL (8.4-11.0); CHLORIDE 109 mmol/L (98-107); CREATININE 0.84 mg/dL (0.55-1.30); GLUCOSE 96 mg/dL (70-99); POTASSIUM 3.9 mmol/L (3.5-5.1); SODIUM SERUM 138 mmol/L (136-145); UREA NITROGEN, BLOOD 15 mg/dL (8-21)
[2018-01-10] MEDS: QUEtiapine FUMARATE 25 MG TABLET PO SCH ×2 (09:17→15:46)
[2018-01-10] MEDS: FAMOTIDINE 20 MG TABLET PO SCH (09:17)
[2018-01-10] MEDS: METOPROLOL TARTRATE 50 MG TABLET PO SCH (09:17)
[2018-01-10] MEDS: ENOXAPARIN SODIUM 30 MG/0.3 ML SYRINGE SUBCUT SCH (09:17)
[2018-01-10] MEDS: LORATADINE 10 MG TABLET PO SCH (09:17)
[2018-01-10] MEDS: PROMETHAZINE-DM 6.25 MG-15 MG/5 ML UDC PO SCH ×3 (09:18→17:00)
[2018-01-10] MEDS: FERROUS SULFATE 325 MG TABLET.DR PO SCH (09:18)
[2018-01-10] MEDS: DORZOLAMIDE 2% OPHTHALMIC SOLN 5ML OP SCH (09:18)
[2018-01-10] MEDS: guaiFENesin 200 MG/10 ML UDC PO SCH ×3 (09:18→17:00)
[2018-01-10] MEDS: CLOPIDOGREL BISULFATE 75 MG TABLET PO SCH (09:18)
[2018-01-10] MEDS: cefTRIAXone 1 GM in D5W 50 ML IV SCH (09:18)
[2018-01-10] MEDS: ENALAPRIL MALEATE 10 MG TABLET (VASOTEC) PO SCH (09:18)
[2018-01-10] MEDS: cloNIDine HCL 0.1 MG TABLET PO PRN ×2 (11:37→20:06)
== END 2018-01-10 20:20 | disposition home health service (06) | DRG 871 ==
LOC: SED 09:06 → STU 11:35 → SMU 01-03 08:55
PROVIDERS: ADMIT Family Medicine; ATTEND Family Medicine
DX: A41.9 Sepsis, unspecified organism (principal); J69.0 Pneumonitis due to inhalation of food and vomit; I50.9 Heart failure, unspecified; I11.0 Hypertensive heart disease with heart failure; F03.90 Unspecified dementia, unspecified severity, without behavioral disturbance, psychotic disturbance, mood disturbance, and anxiety; F20.9 Schizophrenia, unspecified; E03.9 Hypothyroidism, unspecified; H91.90 Unspecified hearing loss, unspecified ear; J44.9 Chronic obstructive pulmonary disease, unspecified; H54.7 Unspecified visual loss; M81.0 Age-related osteoporosis without current pathological fracture; R73.9 Hyperglycemia, unspecified; F99 Mental disorder, not otherwise specified; R14.0 Abdominal distension (gaseous); Z86.73 Personal history of transient ischemic attack (TIA), and cerebral infarction without residual deficits; Z79.899 Other long term (current) drug therapy
CPT/HCPCS: 36415; 70450-TC; 71045; 74018; 76700-TC; 80048; 80053; 81003; 82550-TC; 83605; 83880; 84484; 85007; 85025; 85027; 85610-TC; 85730-TC; 87040-TC; 87081; 92610-GN; 93005; 93306; 94640; 94760; 96361; 96365; 96366; 96367; 96375; 99291; J0696; J1650; J2270; J2405; J2543; J3370; J3490; J7030; J7050; J7060; J7620

== ENCOUNTER 2018-01-11 01:24 | Inpatient (IN) | payer OTHER, MEDICAID ==
[2018-01-11] VITALS (10 sets, daily range): BP systolic 122–236
[~2018-01-11] VITALS: Ht 149.9 cm; Wt 58.1 kg
[~2018-01-11 01:24] MED LIST changes: -CEL20 PO; +ERGO500020 PO; -LATA2.5D6 OP; +XALEYE OP
[2018-01-11] MEDS ORDERED: IPRATROPIUM/ALBUTEROL SULFATE 3 ML AMPUL.NEB INH ONE (01:45)
[2018-01-11] MEDS ORDERED: NACL 0.9% 1,000 ML IV ONE ×2 (01:45→02:15)
[2018-01-11 02:00] LABS: BASOPHILS # (AUTO) 0.1 K/uL (0.0-0.2); BASOPHILS % (AUTO) 0.4 % (0.0-2.0); EOSINOPHILS % (AUTO) 0.1 % (0.0-4.0); HEMATOCRIT 37.3 % (36-48); HEMOGLOBIN 12.2 g/dL (12.0-16.0); LYMPHOCYTES # (AUTO) 1.1 K/uL (1.0-5.5); LYMPHOCYTES % (AUTO) 9.1 % (20.5-51.5); MEAN CORPUSCULAR HEMOGLOBIN 29 pg (27-31); MEAN CORPUSCULAR HGB CONC 33 % (32-36); MEAN CORPUSCULAR VOLUME 89 fL (79.0-98.0); MONOCYTES # (AUTO) 0.7 K/uL (0.0-1.0); MONOCYTES % (AUTO) 5.6 % (1.7-9.3); NEUTROPHILS # (AUTO) 10.7 K/uL (1.8-7.7); NEUTROPHILS % (AUTO) 84.8 % (40.0-70.0); PLATELET COUNT (AUTO) 535 K/uL (130-430); RED BLOOD CELL COUNT(AUTO) 4.19 MIL/uL (4.2-6.2); WHITE BLOOD COUNT (AUTO) 12.6 K/uL (4.8-10.8)
[2018-01-11] MEDS ORDERED: ONDANSETRON HCL 4 MG/2 ML VIAL IVP ONE (02:00)
[2018-01-11] MEDS ORDERED: ONDANSETRON HCL 4 MG/2 ML VIAL ONE (02:06)
[2018-01-11 02:18] LABS: ANION GAP 9 (5-15); CALCIUM 9.6 mg/dL (8.4-11.0); CHLORIDE 104 mmol/L (98-107); CREATININE 0.96 mg/dL (0.55-1.30); GLUCOSE 155 mg/dL (70-99); POTASSIUM 3.3 mmol/L (3.5-5.1); SODIUM SERUM 136 mmol/L (136-145); UREA NITROGEN, BLOOD 16 mg/dL (8-21)
[2018-01-11 02:22] LABS: ALANINE AMINOTRANSFERASE 55 U/L (12-78); ALBUMIN 2.4 g/dL (3.4-4.8); ASPARTATE AMINOTRANSFERASE 104 U/L (10-37); TOTAL BILIRUBIN 1.2 mg/dL (0.0-1.0)
[2018-01-11] MEDS ORDERED: MORPHINE 4 MG/ML INJ. SYRINGE ONE ×2 (02:29→14:33)
[2018-01-11] MEDS ORDERED: MORPHINE 2 MG/ML INJ. SYRINGE IVP ONE (02:30)
[2018-01-11 02:33] LABS: PROTHROMBIN TIME 10.3 SECS (9.5-12.5)
[2018-01-11] MEDS ORDERED: cefTRIAXone 1 GM VIAL ONE (03:42)
[2018-01-11] MEDS ORDERED: cefTRIAXone 1 GM in D5W 50 ML IV ONE (03:45)
[2018-01-11] MEDS ORDERED: D5/0.45 NS 1,000 ML IV SCH (04:00)
[2018-01-11] MEDS: LevALBUTEROL HCL 1.25 MG/0.5 ML *CONC.* VIAL.NEB (XOPENEX CONC.) INH SCH ×4 (07:00→19:18)
[2018-01-11] MEDS ORDERED: MILK OF MAGNESIA 30 ML UDC PO PRN ×2 (08:30→09:00)
[2018-01-11] MEDS ORDERED: BISACODYL 10 MG/SUPPOSITORY RC PRN (08:45)
[2018-01-11] MEDS ORDERED: cefTRIAXone 1 GM in D5W 50 ML IV SCH (09:00)
[2018-01-11] MEDS: DOCUSATE SODIUM 100 MG/10 ML UDC PO SCH (09:26)
[2018-01-11] MEDS: CLOPIDOGREL BISULFATE 75 MG TABLET PO SCH (09:26)
[2018-01-11] MEDS: VALSARTAN 160 MG TABLET (DIOVAN) PO SCH ×2 (09:27→20:47)
[2018-01-11] MEDS: DORZOLAMIDE 2% OPHTHALMIC SOLN 5ML OP SCH ×2 (09:28→20:49)
[2018-01-11] MEDS: FERROUS SULFATE 325 MG TABLET.DR PO SCH ×2 (09:28→20:47)
[2018-01-11] MEDS ORDERED: AZITHROMYCIN 250 MG in NS 250 ML IV SCH (10:00)
[2018-01-11] MEDS ORDERED: metroNIDAZOLE 500 mg/NS 100 ML IV SCH ×2 (11:30→15:15)
[2018-01-11] MEDS: KCL 20 mEq in D5/0.45NS 1000mL 1,000 ML IV SCH (12:30)
[2018-01-11] MEDS ORDERED: ONDANSETRON HCL 4 MG/2 ML VIAL IVP PRN (12:30)
[2018-01-11] MEDS: MORPHINE 4 MG/ML INJ. SYRINGE IVP PRN ×3 (12:40→23:48)
[2018-01-11] MEDS: cloNIDine HCL 0.1 MG TABLET PO PRN (12:41)
[2018-01-11] MEDS: hydrALAZINE HCL 20 MG/ML VIAL IVP PRN ×2 (13:59→18:11)
[2018-01-11] MEDS ORDERED: MORPHINE 4 MG/ML INJ. SYRINGE IVP ONE (14:45)
[2018-01-11] MEDS ORDERED: PANTOPRAZOLE SODIUM 40 MG/VIAL (PROTONIX) IVP SCH (14:45)
[2018-01-11] MEDS ORDERED: cloNIDine HCL 0.3 MG/24 HR PATCH.TDWK TD ONE (15:15)
[2018-01-11] MEDS ORDERED: PIPERACILLIN/TAZO 3.375/DEX-IS 50 ML IV SCH (15:15)
[2018-01-11] MEDS ORDERED: PANTOPRAZOLE SODIUM 40 MG/VIAL (PROTONIX) IVP ONE (16:30)
[2018-01-11] MEDS ORDERED: DIATR MEGLU/DIATRIZ SOD 30 ML SOLUTION PO ONE (17:47)
[2018-01-11] MEDS: KETOROLAC TROMETHAMINE 15 MG VIAL IVP PRN (18:11)
[2018-01-11] MEDS: METOCLOPRAMIDE HCL 10 MG/2 ML VIAL IVP PRN (18:20)
[2018-01-11] MEDS ORDERED: IOHEXOL 350 mgI/mL, 150 ML INFUS..BTL IV ONE (20:07)
[2018-01-11] MEDS: DONEPEZIL HCL 5 MG TABLET (ARICEPT) PO SCH (20:47)
[2018-01-11] MEDS: LevALBUTEROL HCL 1.25 MG/0.5 ML *CONC.* VIAL.NEB (XOPENEX CONC.) INH PRN (21:07)
[2018-01-11] MEDS: metroNIDAZOLE 500 mg/NS 100 ML IV SCH (22:07)
[2018-01-11] MEDS: PIPERACILLIN/TAZO 3.375/DEX-IS 50 ML IV SCH (23:47)
[2018-01-12 00:09] VITALS: BP_SYST 133
[2018-01-12] MEDS: LevALBUTEROL HCL 1.25 MG/0.5 ML *CONC.* VIAL.NEB (XOPENEX CONC.) INH SCH ×4 (01:00→20:10)
[2018-01-12] MEDS: MORPHINE 4 MG/ML INJ. SYRINGE IVP PRN ×3 (02:01→12:22)
[2018-01-12] MEDS: KETOROLAC TROMETHAMINE 15 MG VIAL IVP PRN ×2 (03:31→12:46)
[2018-01-12] MEDS: KCL 20 mEq in D5/0.45NS 1000mL 1,000 ML IV SCH ×2 (03:38→17:11)
[2018-01-12] MEDS: PIPERACILLIN/TAZO 3.375/DEX-IS 50 ML IV SCH ×3 (05:57→17:09)
[2018-01-12] MEDS: metroNIDAZOLE 500 mg/NS 100 ML IV SCH ×3 (05:57→21:51)
[2018-01-12] MEDS: PANTOPRAZOLE SODIUM 40 MG/VIAL (PROTONIX) IVP SCH ×2 (06:09→17:08)
[2018-01-12 06:20] LABS: HEMATOCRIT 32.5 % (36-48); HEMOGLOBIN 11.3 g/dL (12.0-16.0); MEAN CORPUSCULAR HEMOGLOBIN 31 pg (27-31); MEAN CORPUSCULAR HGB CONC 35 % (32-36); MEAN CORPUSCULAR VOLUME 88 fL (79.0-98.0); PLATELET COUNT (AUTO) 421 K/uL (130-430); RED BLOOD CELL COUNT(AUTO) 3.68 MIL/uL (4.2-6.2); RED CELL DISTRIBUTION WIDTH 13.1 % (9.0-15.0)
[2018-01-12 06:24] LABS: INR 1.1 (0.8-1.2)
[2018-01-12 06:27] LABS: ALANINE AMINOTRANSFERASE 114 U/L (12-78); ALBUMIN 2.1 g/dL (3.4-4.8); ANION GAP 13 (5-15); CALCIUM 8.9 mg/dL (8.4-11.0); CHLORIDE 103 mmol/L (98-107); CREATININE 1.32 mg/dL (0.55-1.30); GLUCOSE 116 mg/dL (70-99); POTASSIUM 3.1 mmol/L (3.5-5.1); SODIUM SERUM 134 mmol/L (136-145); TOTAL BILIRUBIN 2.6 mg/dL (0.0-1.0); UREA NITROGEN, BLOOD 23 mg/dL (8-21)
[2018-01-12 07:03] LABS: WHITE BLOOD COUNT (AUTO) 37.8 K/uL (4.8-10.8)
[2018-01-12 07:16] LABS: ASPARTATE AMINOTRANSFERASE 179 U/L (10-37)
[2018-01-12 07:39] LABS: BAND % (MANUAL) 10 % (0-6)
[2018-01-12 07:40] LABS: BASOPHILS % (MANUAL) 0 % (0-2); EOSINOPHILS % (MANUAL) 0 % (0-7); LYMPHOCYTES % (MANUAL) 1 % (20-46); MONOCYTES % (MANUAL) 5 % (0-11)
[2018-01-12 07:50] VITALS: BP_SYST 120
[2018-01-12] MEDS: CLOPIDOGREL BISULFATE 75 MG TABLET PO SCH (09:00)
[2018-01-12] MEDS: FERROUS SULFATE 325 MG TABLET.DR PO SCH ×2 (09:00→20:25)
[2018-01-12] MEDS: VALSARTAN 160 MG TABLET (DIOVAN) PO SCH ×2 (09:00→20:26)
[2018-01-12] MEDS: DORZOLAMIDE 2% OPHTHALMIC SOLN 5ML OP SCH ×2 (09:00→20:26)
[2018-01-12] MEDS: DOCUSATE SODIUM 100 MG/10 ML UDC PO SCH (09:00)
[2018-01-12] MEDS ORDERED: FLUCONAZOLE 200 mg/ NS 100 ML IV ONE (09:30)
[2018-01-12] MEDS ORDERED: POTASSIUM CHLORIDE 40 MEQ in D5W 250 ML IV ONE (10:15)
[2018-01-12 12:20] VITALS: BP_SYST 143
[2018-01-12] MEDS: METOCLOPRAMIDE HCL 10 MG/2 ML VIAL IVP PRN (12:35)
[2018-01-12] MEDS ORDERED: MEPERIDINE HCL/PF 100 MG/ML AMP ONE (13:44)
[2018-01-12] MEDS ORDERED: MIDAZOLAM HCL 5 MG/5 ML VIAL ONE (13:44)
[2018-01-12] MEDS ORDERED: SIMETHICONE 40 MG/0.6 ML ML ONE (13:44)
[2018-01-12] MEDS ORDERED: HYDROmorphone 2 MG/ML VIAL IVP ONE (13:45)
[2018-01-12] MEDS ORDERED: HYDROmorphone 2 MG/ML VIAL ONE (13:56)
[2018-01-12 15:00] VITALS: BP_SYST 130
[2018-01-12 17:50] VITALS: BP_SYST 119
[2018-01-12] MEDS: DONEPEZIL HCL 5 MG TABLET (ARICEPT) PO SCH (20:26)
[2018-01-12] MEDS: MUPIROCIN 2% TOPICAL OINTMENT 22 GM NS SCH (20:26)
[2018-01-12] MEDS: HYDROmorphone 2 MG/ML VIAL IVP PRN (20:27)
[2018-01-13] MEDS: PIPERACILLIN/TAZO 3.375/DEX-IS 50 ML IV SCH ×5 (00:02→23:33)
[2018-01-13] MEDS: LevALBUTEROL HCL 1.25 MG/0.5 ML *CONC.* VIAL.NEB (XOPENEX CONC.) INH SCH ×4 (01:00→20:43)
[2018-01-13 01:02] VITALS: BP_SYST 120
[2018-01-13] MEDS: HYDROmorphone 2 MG/ML VIAL IVP PRN ×4 (04:19→23:30)
[2018-01-13] MEDS: KCL 20 mEq in D5/0.45NS 1000mL 1,000 ML IV SCH ×3 (05:20→20:16)
[2018-01-13] MEDS: metroNIDAZOLE 500 mg/NS 100 ML IV SCH ×3 (06:05→22:11)
[2018-01-13] MEDS: PANTOPRAZOLE SODIUM 40 MG/VIAL (PROTONIX) IVP SCH ×2 (06:05→17:27)
[2018-01-13 06:26] LABS: BASOPHILS % (AUTO) 0.1 % (0.0-2.0); EOSINOPHILS % (AUTO) 0.1 % (0.0-4.0); HEMATOCRIT 28.5 % (36-48); HEMOGLOBIN 9.6 g/dL (12.0-16.0); LYMPHOCYTES # (AUTO) 0.8 K/uL (1.0-5.5); LYMPHOCYTES % (AUTO) 2.3 % (20.5-51.5); MEAN CORPUSCULAR HEMOGLOBIN 30 pg (27-31); MEAN CORPUSCULAR HGB CONC 34 % (32-36); MEAN CORPUSCULAR VOLUME 90 fL (79.0-98.0); MONOCYTES # (AUTO) 1.2 K/uL (0.0-1.0); MONOCYTES % (AUTO) 3.3 % (1.7-9.3); NEUTROPHILS # (AUTO) 33.9 K/uL (1.8-7.7); NEUTROPHILS % (AUTO) 94.2 % (40.0-70.0); PLATELET COUNT (AUTO) 344 K/uL (130-430); RED BLOOD CELL COUNT(AUTO) 3.18 MIL/uL (4.2-6.2); RED CELL DISTRIBUTION WIDTH 13.4 % (9.0-15.0)
[2018-01-13 06:35] LABS: ALANINE AMINOTRANSFERASE 83 U/L (12-78); ANION GAP 11 (5-15); ASPARTATE AMINOTRANSFERASE 81 U/L (10-37); CALCIUM 8.2 mg/dL (8.4-11.0); CHLORIDE 105 mmol/L (98-107); GLUCOSE 111 mg/dL (70-99); POTASSIUM 4.6 mmol/L (3.5-5.1); SODIUM SERUM 134 mmol/L (136-145); TOTAL BILIRUBIN 2.2 mg/dL (0.0-1.0); UREA NITROGEN, BLOOD 30 mg/dL (8-21)
[2018-01-13 06:49] LABS: AMYLASE 821 U/L (0-100); LIPASE 3257 U/L (73-393)
[2018-01-13 06:52] LABS: WHITE BLOOD COUNT (AUTO) 35.9 K/uL (4.8-10.8)
[2018-01-13 08:00] VITALS: BP_SYST 110
[2018-01-13] MEDS: MUPIROCIN 2% TOPICAL OINTMENT 22 GM NS SCH ×3 (10:39→21:00)
[2018-01-13] MEDS: VALSARTAN 160 MG TABLET (DIOVAN) PO SCH ×2 (10:40→21:00)
[2018-01-13] MEDS: DOCUSATE SODIUM 100 MG/10 ML UDC PO SCH (10:40)
[2018-01-13] MEDS: DORZOLAMIDE 2% OPHTHALMIC SOLN 5ML OP SCH ×3 (10:40→21:00)
[2018-01-13] MEDS: CLOPIDOGREL BISULFATE 75 MG TABLET PO SCH (10:41)
[2018-01-13] MEDS: FERROUS SULFATE 325 MG TABLET.DR PO SCH ×2 (10:41→21:00)
[2018-01-13 12:04] VITALS: BP_SYST 105
[2018-01-13 16:12] VITALS: BP_SYST 140
[2018-01-13 20:00] VITALS: BP_SYST 107
[2018-01-13] MEDS: DONEPEZIL HCL 5 MG TABLET (ARICEPT) PO SCH (21:00)
[2018-01-14 00:47] VITALS: BP_SYST 94
[2018-01-14] MEDS: LevALBUTEROL HCL 1.25 MG/0.5 ML *CONC.* VIAL.NEB (XOPENEX CONC.) INH SCH ×4 (00:56→20:30)
[2018-01-14] MEDS: PIPERACILLIN/TAZO 3.375/DEX-IS 50 ML IV SCH ×3 (05:09→18:38)
[2018-01-14] MEDS: metroNIDAZOLE 500 mg/NS 100 ML IV SCH ×3 (05:46→21:27)
[2018-01-14] MEDS: PANTOPRAZOLE SODIUM 40 MG/VIAL (PROTONIX) IVP SCH ×2 (06:31→18:21)
[2018-01-14 06:53] LABS: BASOPHILS % (AUTO) 0.1 % (0.0-2.0); EOSINOPHILS # (AUTO) 0.2 K/uL (0.0-0.4); EOSINOPHILS % (AUTO) 0.8 % (0.0-4.0); HEMATOCRIT 25.4 % (36-48); HEMOGLOBIN 8.6 g/dL (12.0-16.0); LYMPHOCYTES # (AUTO) 0.5 K/uL (1.0-5.5); LYMPHOCYTES % (AUTO) 2.1 % (20.5-51.5); MEAN CORPUSCULAR HEMOGLOBIN 30 pg (27-31); MEAN CORPUSCULAR HGB CONC 34 % (32-36); MEAN CORPUSCULAR VOLUME 88 fL (79.0-98.0); MONOCYTES # (AUTO) 1.2 K/uL (0.0-1.0); MONOCYTES % (AUTO) 4.9 % (1.7-9.3); NEUTROPHILS # (AUTO) 21.7 K/uL (1.8-7.7); NEUTROPHILS % (AUTO) 92.1 % (40.0-70.0); PLATELET COUNT (AUTO) 309 K/uL (130-430); RED BLOOD CELL COUNT(AUTO) 2.89 MIL/uL (4.2-6.2); RED CELL DISTRIBUTION WIDTH 14.4 % (9.0-15.0); WHITE BLOOD COUNT (AUTO) 23.6 K/uL (4.8-10.8)
[2018-01-14 07:14] LABS: ALANINE AMINOTRANSFERASE 50 U/L (12-78); ALBUMIN 1.4 g/dL (3.4-4.8); AMYLASE 136 U/L (0-100); ANION GAP 12 (5-15); ASPARTATE AMINOTRANSFERASE 41 U/L (10-37); BILIRUBIN,DIRECT 2.5 mg/dL (0.0-0.3); CALCIUM 7.7 mg/dL (8.4-11.0); CHLORIDE 105 mmol/L (98-107); CREATININE 2.45 mg/dL (0.55-1.30); GLUCOSE 105 mg/dL (70-99); LIPASE 747 U/L (73-393); POTASSIUM 4.6 mmol/L (3.5-5.1); SODIUM SERUM 134 mmol/L (136-145); TOTAL BILIRUBIN 2.7 mg/dL (0.0-1.0); UREA NITROGEN, BLOOD 33 mg/dL (8-21)
[2018-01-14 08:06] VITALS: BP_SYST 133
[2018-01-14] MEDS: DOCUSATE SODIUM 100 MG/10 ML UDC PO SCH (08:08)
[2018-01-14] MEDS: DORZOLAMIDE 2% OPHTHALMIC SOLN 5ML OP SCH ×2 (08:08→21:28)
[2018-01-14] MEDS: FERROUS SULFATE 325 MG TABLET.DR PO SCH ×2 (08:09→21:00)
[2018-01-14] MEDS: VALSARTAN 160 MG TABLET (DIOVAN) PO SCH ×2 (08:09→21:00)
[2018-01-14] MEDS: CLOPIDOGREL BISULFATE 75 MG TABLET PO SCH (08:09)
[2018-01-14] MEDS: MUPIROCIN 2% TOPICAL OINTMENT 22 GM NS SCH ×2 (08:09→21:27)
[2018-01-14] MEDS: MORPHINE 4 MG/ML INJ. SYRINGE IVP PRN (08:11)
[2018-01-14] MEDS: KCL 20 mEq in D5/0.45NS 1000mL 1,000 ML IV SCH (10:19)
[2018-01-14 12:51] VITALS: BP_SYST 149
[2018-01-14 14:19] VITALS: BP_SYST 149
[2018-01-14] MEDS ORDERED: IOHEXOL 50 ML IV ONE (16:12)
[2018-01-14 18:10] VITALS: BP_SYST 163
[2018-01-14] MEDS: HYDROmorphone 2 MG/ML VIAL IVP PRN (18:19)
[2018-01-14] MEDS: DONEPEZIL HCL 5 MG TABLET (ARICEPT) PO SCH (21:00)
[2018-01-15] VITALS (9 sets, daily range): BP systolic 119–151
[2018-01-15] MEDS: KCL 20 mEq in D5/0.45NS 1000mL 1,000 ML IV SCH ×3 (00:13→15:30)
[2018-01-15] MEDS: PIPERACILLIN/TAZO 3.375/DEX-IS 50 ML IV SCH ×4 (00:13→17:57)
[2018-01-15] MEDS: LevALBUTEROL HCL 1.25 MG/0.5 ML *CONC.* VIAL.NEB (XOPENEX CONC.) INH SCH ×4 (01:02→19:46)
[2018-01-15] MEDS: HYDROmorphone 2 MG/ML VIAL IVP PRN ×2 (02:54→07:58)
[2018-01-15 06:12] LABS: BASOPHILS % (AUTO) 0.1 % (0.0-2.0); EOSINOPHILS # (AUTO) 0.2 K/uL (0.0-0.4); HEMATOCRIT 27.8 % (36-48); HEMOGLOBIN 9.3 g/dL (12.0-16.0); LYMPHOCYTES # (AUTO) 0.6 K/uL (1.0-5.5); LYMPHOCYTES % (AUTO) 2.8 % (20.5-51.5); MEAN CORPUSCULAR HEMOGLOBIN 29 pg (27-31); MEAN CORPUSCULAR HGB CONC 33 % (32-36); MEAN CORPUSCULAR VOLUME 88 fL (79.0-98.0); MONOCYTES # (AUTO) 1.7 K/uL (0.0-1.0); MONOCYTES % (AUTO) 7.3 % (1.7-9.3); NEUTROPHILS # (AUTO) 20.3 K/uL (1.8-7.7); NEUTROPHILS % (AUTO) 88.8 % (40.0-70.0); PLATELET COUNT (AUTO) 393 K/uL (130-430); RED BLOOD CELL COUNT(AUTO) 3.15 MIL/uL (4.2-6.2); RED CELL DISTRIBUTION WIDTH 14.6 % (9.0-15.0); WHITE BLOOD COUNT (AUTO) 22.8 K/uL (4.8-10.8)
[2018-01-15] MEDS: metroNIDAZOLE 500 mg/NS 100 ML IV SCH ×3 (06:12→22:41)
[2018-01-15] MEDS: PANTOPRAZOLE SODIUM 40 MG/VIAL (PROTONIX) IVP SCH ×2 (06:19→17:56)
[2018-01-15 06:56] LABS: ANION GAP 13 (5-15); CALCIUM 7.4 mg/dL (8.4-11.0); CHLORIDE 108 mmol/L (98-107); CREATININE 2.79 mg/dL (0.55-1.30); GLUCOSE 134 mg/dL (70-99); POTASSIUM 4.7 mmol/L (3.5-5.1); SODIUM SERUM 137 mmol/L (136-145); UREA NITROGEN, BLOOD 34 mg/dL (8-21)
[2018-01-15 06:59] LABS: ALANINE AMINOTRANSFERASE 37 U/L (12-78); ALBUMIN 1.5 g/dL (3.4-4.8); ASPARTATE AMINOTRANSFERASE 27 U/L (10-37); LIPASE 395 U/L (73-393); TOTAL BILIRUBIN 3.8 mg/dL (0.0-1.0)
[2018-01-15] MEDS: VALSARTAN 160 MG TABLET (DIOVAN) PO SCH (09:00)
[2018-01-15] MEDS ORDERED: ERGOCALCIFEROL 8000 UNITS/ML ORAL SOLUTION, 60 ML BOTTLE PO SCH (09:00)
[2018-01-15] MEDS: DOCUSATE SODIUM 100 MG/10 ML UDC PO SCH (09:00)
[2018-01-15] MEDS: CLOPIDOGREL BISULFATE 75 MG TABLET PO SCH (09:00)
[2018-01-15] MEDS: FERROUS SULFATE 325 MG TABLET.DR PO SCH ×2 (09:00→21:00)
[2018-01-15] MEDS: MUPIROCIN 2% TOPICAL OINTMENT 22 GM NS SCH ×2 (11:25→22:40)
[2018-01-15] MEDS: DORZOLAMIDE 2% OPHTHALMIC SOLN 5ML OP SCH ×2 (11:26→22:40)
[2018-01-15] MEDS ORDERED: BUPIVACAINE /EPINEPHRINE/PF 0.5% 30 ML VIAL INJ ONE (11:50)
[2018-01-15] MEDS ORDERED: NS IRRIG SOLN 1000 ML IR ONE (11:50)
[2018-01-15] MEDS ORDERED: MORPHINE SULFATE 10MG/10ML PF AMP EP ONE (11:50)
[2018-01-15] MEDS ORDERED: MIDAZOLAM HCL 5 MG/5 ML VIAL IVP ONE (11:50)
[2018-01-15] MEDS ORDERED: ePHEDrine sulfate 50 MG/ML VIAL IVP ONE (11:50)
[2018-01-15] MEDS ORDERED: NS 1000 ML IV.SOLN IV ONE (11:50)
[2018-01-15] MEDS ORDERED: IOHEXOL 50 ML IV ONE (12:06)
[2018-01-15] MEDS ORDERED: NALOXONE HCL 0.4 MG/ML AMP (NARCAN) IVP PRN ×2 (14:15)
[2018-01-15] MEDS ORDERED: NALBUPHINE HCL 10 MG/ML AMP IVP PRN (14:15)
[2018-01-15] MEDS ORDERED: fentaNYL CITRATE/PF 100 MCG/2 ML AMP IVP PRN ×2 (14:15)
[2018-01-15] MEDS ORDERED: KETOROLAC TROMETHAMINE 60 MG/2 ML VIAL IM PRN (14:15)
[2018-01-15] MEDS ORDERED: DIPHENHYDRAMINE INJ 50 MG/ML VIAL IVP PRN (14:15)
[2018-01-15] MEDS ORDERED: MORPHINE SULFATE 10MG/10ML PF AMP EP SCH (14:15)
[2018-01-15] MEDS ORDERED: ONDANSETRON HCL 4 MG/2 ML VIAL IVP PRN ×2 (14:15)
[2018-01-15] MEDS: DONEPEZIL HCL 5 MG TABLET (ARICEPT) PO SCH (21:00)
[2018-01-15] MEDS: NACL 0.9% 1,000 ML IV SCH (22:42)
[2018-01-16] VITALS (24 sets, daily range): BP systolic 119–180
[2018-01-16] MEDS: LevALBUTEROL HCL 1.25 MG/0.5 ML *CONC.* VIAL.NEB (XOPENEX CONC.) INH SCH ×4 (00:17→20:21)
[2018-01-16] MEDS: PIPERACILLIN/TAZO 3.375/DEX-IS 50 ML IV SCH ×5 (00:41→23:16)
[2018-01-16] MEDS: HYDROmorphone 2 MG/ML VIAL IVP PRN (04:48)
[2018-01-16] MEDS: metroNIDAZOLE 500 mg/NS 100 ML IV SCH ×3 (06:08→21:25)
[2018-01-16] MEDS ORDERED: PANTOPRAZOLE SODIUM 40 MG/VIAL (PROTONIX) ONE (06:08)
[2018-01-16] MEDS: PANTOPRAZOLE SODIUM 40 MG/VIAL (PROTONIX) IVP SCH ×2 (06:08→17:39)
[2018-01-16 06:24] LABS: INR 1.4 (0.8-1.2); PROTHROMBIN TIME 14.8 SECS (9.5-12.5)
[2018-01-16 06:40] LABS: ANION GAP 13 (5-15); CALCIUM 8.1 mg/dL (8.4-11.0); CHLORIDE 109 mmol/L (98-107); CREATININE 2.89 mg/dL (0.55-1.30); GLUCOSE 72 mg/dL (70-99); POTASSIUM 4.6 mmol/L (3.5-5.1); SODIUM SERUM 137 mmol/L (136-145); UREA NITROGEN, BLOOD 35 mg/dL (8-21)
[2018-01-16 06:41] LABS: ALANINE AMINOTRANSFERASE 35 U/L (12-78); ALBUMIN 1.3 g/dL (3.4-4.8); ASPARTATE AMINOTRANSFERASE 46 U/L (10-37); HEMATOCRIT 26.8 % (36-48); HEMOGLOBIN 9.1 g/dL (12.0-16.0); LIPASE 320 U/L (73-393); MEAN CORPUSCULAR HEMOGLOBIN 30 pg (27-31); MEAN CORPUSCULAR HGB CONC 34 % (32-36); MEAN CORPUSCULAR VOLUME 89 fL (79.0-98.0); PLATELET COUNT (AUTO) 431 K/uL (130-430); RED BLOOD CELL COUNT(AUTO) 3.03 MIL/uL (4.2-6.2); RED CELL DISTRIBUTION WIDTH 14.9 % (9.0-15.0); TOTAL BILIRUBIN 4.3 mg/dL (0.0-1.0); WHITE BLOOD COUNT (AUTO) 22.1 K/uL (4.8-10.8)
[2018-01-16] MEDS ORDERED: NOREPINEPHRINE 4 MG/4 ML VIAL IV ONE (06:52)
[2018-01-16 08:04] LABS: BAND % (MANUAL) 8 % (0-6); BASOPHILS % (MANUAL) 0 % (0-2); EOSINOPHILS % (MANUAL) 0 % (0-7); LYMPHOCYTES % (MANUAL) 6 % (20-46); MONOCYTES % (MANUAL) 11 % (0-11)
[2018-01-16] MEDS: FERROUS SULFATE 325 MG TABLET.DR PO SCH ×2 (09:00→21:00)
[2018-01-16] MEDS: DOCUSATE SODIUM 100 MG/10 ML UDC PO SCH (09:00)
[2018-01-16] MEDS: CLOPIDOGREL BISULFATE 75 MG TABLET PO SCH (09:00)
[2018-01-16] MEDS: DORZOLAMIDE 2% OPHTHALMIC SOLN 5ML OP SCH ×2 (09:22→21:27)
[2018-01-16] MEDS: MUPIROCIN 2% TOPICAL OINTMENT 22 GM NS SCH ×2 (09:22→21:26)
[2018-01-16] MEDS: MORPHINE 4 MG/ML INJ. SYRINGE IVP PRN ×2 (13:46→19:45)
[2018-01-16] MEDS ORDERED: hydrALAZINE HCL 20 MG/ML VIAL ONE (15:12)
[2018-01-16] MEDS: hydrALAZINE HCL 20 MG/ML VIAL IVP PRN ×2 (15:15→22:32)
[2018-01-16] MEDS: KETOROLAC TROMETHAMINE 15 MG VIAL IVP PRN (15:22)
[2018-01-16] MEDS: KCL 20 mEq in D5/0.45NS 1000mL 1,000 ML IV SCH (17:40)
[2018-01-16] MEDS: NACL 0.9% 1,000 ML IV SCH (19:53)
[2018-01-16] MEDS: DONEPEZIL HCL 5 MG TABLET (ARICEPT) PO SCH (21:00)
[2018-01-17] VITALS (25 sets, daily range): BP systolic 96–160
[2018-01-17] MEDS: HYDROmorphone 2 MG/ML VIAL IVP PRN ×4 (00:35→23:23)
[2018-01-17] MEDS: LevALBUTEROL HCL 1.25 MG/0.5 ML *CONC.* VIAL.NEB (XOPENEX CONC.) INH SCH ×4 (00:55→20:19)
[2018-01-17 06:17] LABS: HEMATOCRIT 27.2 % (36-48); HEMOGLOBIN 9.3 g/dL (12.0-16.0); MEAN CORPUSCULAR HEMOGLOBIN 30 pg (27-31); MEAN CORPUSCULAR HGB CONC 34 % (32-36); MEAN CORPUSCULAR VOLUME 87 fL (79.0-98.0); PLATELET COUNT (AUTO) 420 K/uL (130-430); RED BLOOD CELL COUNT(AUTO) 3.14 MIL/uL (4.2-6.2); WHITE BLOOD COUNT (AUTO) 25.5 K/uL (4.8-10.8)
[2018-01-17] MEDS: PIPERACILLIN/TAZO 3.375/DEX-IS 50 ML IV SCH ×4 (06:22→23:23)
[2018-01-17] MEDS: PANTOPRAZOLE SODIUM 40 MG/VIAL (PROTONIX) IVP SCH ×2 (06:22→17:15)
[2018-01-17] MEDS: metroNIDAZOLE 500 mg/NS 100 ML IV SCH ×3 (06:23→21:36)
[2018-01-17 07:08] LABS: ALANINE AMINOTRANSFERASE 32 U/L (12-78); ALBUMIN 1.3 g/dL (3.4-4.8); ANION GAP 13 (5-15); CALCIUM 8.6 mg/dL (8.4-11.0); CHLORIDE 109 mmol/L (98-107); CREATININE 3.17 mg/dL (0.55-1.30); GLUCOSE 50 mg/dL (70-99); LIPASE 283 U/L (73-393); POTASSIUM 4.4 mmol/L (3.5-5.1); SODIUM SERUM 135 mmol/L (136-145); TOTAL BILIRUBIN 3.6 mg/dL (0.0-1.0); UREA NITROGEN, BLOOD 40 mg/dL (8-21)
[2018-01-17 07:46] LABS: ASPARTATE AMINOTRANSFERASE 50 U/L (10-37)
[2018-01-17 08:59] LABS: BAND % (MANUAL) 10 % (0-6); BASOPHILS % (MANUAL) 0 % (0-2); EOSINOPHILS % (MANUAL) 0 % (0-7); LYMPHOCYTES % (MANUAL) 8 % (20-46); MONOCYTES % (MANUAL) 12 % (0-11)
[2018-01-17] MEDS: DOCUSATE SODIUM 100 MG/10 ML UDC PO SCH (10:00)
[2018-01-17] MEDS: DORZOLAMIDE 2% OPHTHALMIC SOLN 5ML OP SCH ×2 (10:00→21:37)
[2018-01-17] MEDS: MUPIROCIN 2% TOPICAL OINTMENT 22 GM NS SCH ×2 (10:00→21:37)
[2018-01-17] MEDS: FERROUS SULFATE 325 MG TABLET.DR PO SCH ×2 (10:01→21:36)
[2018-01-17] MEDS: CLOPIDOGREL BISULFATE 75 MG TABLET PO SCH (10:01)
[2018-01-17] MEDS: NACL 0.9% 1,000 ML IV SCH ×3 (10:01→12:36)
[2018-01-17] MEDS: MORPHINE 4 MG/ML INJ. SYRINGE IVP PRN (12:24)
[2018-01-17] MEDS: FUROSEMIDE 100 MG in D5W 90 ML IV SCH (12:24)
[2018-01-17] MEDS ORDERED: COMMUNICATION ORDER XX ONE (12:30)
[2018-01-17] MEDS: DONEPEZIL HCL 5 MG TABLET (ARICEPT) PO SCH (21:36)
[2018-01-17] MEDS: LevALBUTEROL HCL 1.25 MG/0.5 ML *CONC.* VIAL.NEB (XOPENEX CONC.) INH PRN (22:56)
[2018-01-18] VITALS (24 sets, daily range): BP systolic 104–162
[2018-01-18] MEDS: LevALBUTEROL HCL 1.25 MG/0.5 ML *CONC.* VIAL.NEB (XOPENEX CONC.) INH SCH ×4 (00:59→19:37)
[2018-01-18] MEDS: HYDROmorphone 2 MG/ML VIAL IVP PRN ×3 (05:34→18:06)
[2018-01-18] MEDS: metroNIDAZOLE 500 mg/NS 100 ML IV SCH ×3 (05:38→22:46)
[2018-01-18] MEDS: PIPERACILLIN/TAZO 3.375/DEX-IS 50 ML IV SCH ×4 (05:39→23:36)
[2018-01-18] MEDS: PANTOPRAZOLE SODIUM 40 MG/VIAL (PROTONIX) IVP SCH ×2 (06:02→17:51)
[2018-01-18 06:40] LABS: ALANINE AMINOTRANSFERASE 35 U/L (12-78); ALBUMIN 1.5 g/dL (3.4-4.8); ANION GAP 18 (5-15); ASPARTATE AMINOTRANSFERASE 61 U/L (10-37); CALCIUM 8.8 mg/dL (8.4-11.0); CHLORIDE 107 mmol/L (98-107); CREATININE 3.91 mg/dL (0.55-1.30); GLUCOSE 79 mg/dL (70-99); POTASSIUM 4.3 mmol/L (3.5-5.1); SODIUM SERUM 137 mmol/L (136-145); TOTAL BILIRUBIN 2.9 mg/dL (0.0-1.0); UREA NITROGEN, BLOOD 45 mg/dL (8-21)
[2018-01-18 06:48] LABS: HEMATOCRIT 27.9 % (36-48); HEMOGLOBIN 9.5 g/dL (12.0-16.0); MEAN CORPUSCULAR HEMOGLOBIN 30 pg (27-31); MEAN CORPUSCULAR HGB CONC 34 % (32-36); MEAN CORPUSCULAR VOLUME 88 fL (79.0-98.0); PLATELET COUNT (AUTO) 456 K/uL (130-430); RED BLOOD CELL COUNT(AUTO) 3.17 MIL/uL (4.2-6.2); RED CELL DISTRIBUTION WIDTH 14.7 % (9.0-15.0)
[2018-01-18] MEDS: DORZOLAMIDE 2% OPHTHALMIC SOLN 5ML OP SCH ×2 (08:56→22:47)
[2018-01-18] MEDS: FERROUS SULFATE 325 MG TABLET.DR PO SCH ×3 (08:56→21:00)
[2018-01-18] MEDS: DOCUSATE SODIUM 100 MG/10 ML UDC PO SCH ×2 (08:56→09:00)
[2018-01-18] MEDS: CLOPIDOGREL BISULFATE 75 MG TABLET PO SCH ×2 (08:56→09:00)
[2018-01-18] MEDS: NACL 0.9% 1,000 ML IV SCH (10:35)
[2018-01-18 11:01] LABS: BAND % (MANUAL) 9 % (0-6); BASOPHILS % (MANUAL) 0 % (0-2); EOSINOPHILS % (MANUAL) 0 % (0-7); LYMPHOCYTES % (MANUAL) 2 % (20-46); MONOCYTES % (MANUAL) 6 % (0-11); MYELOCYTES % 2 % (0-0)
[2018-01-18] MEDS ORDERED: HEPARIN SODIUM,PORCINE 5000 UNITS/ML VIAL ONE (11:46)
[2018-01-18] MEDS: FUROSEMIDE 100 MG in D5W 90 ML IV SCH (12:28)
[2018-01-18] MEDS: MORPHINE 4 MG/ML INJ. SYRINGE IVP PRN ×2 (12:30→21:13)
[2018-01-18] MEDS: CIPROFLOXACIN HCL 0.3% EYE DRP 2.5 ML DROPS OP SCH ×3 (15:00→23:41)
[2018-01-18] MEDS: DONEPEZIL HCL 5 MG TABLET (ARICEPT) PO SCH (21:00)
[2018-01-18] MEDS: LevALBUTEROL HCL 1.25 MG/0.5 ML *CONC.* VIAL.NEB (XOPENEX CONC.) INH PRN (21:10)
[2018-01-19] VITALS (24 sets, daily range): BP systolic 86–176
[2018-01-19] MEDS: LevALBUTEROL HCL 1.25 MG/0.5 ML *CONC.* VIAL.NEB (XOPENEX CONC.) INH SCH ×4 (01:03→19:51)
[2018-01-19] MEDS: CIPROFLOXACIN HCL 0.3% EYE DRP 2.5 ML DROPS OP SCH ×6 (03:03→22:11)
[2018-01-19] MEDS: PIPERACILLIN/TAZO 3.375/DEX-IS 50 ML IV SCH ×3 (06:11→17:57)
[2018-01-19] MEDS: NACL 0.9% 1,000 ML IV SCH (06:13)
[2018-01-19] MEDS: metroNIDAZOLE 500 mg/NS 100 ML IV SCH ×3 (06:13→22:10)
[2018-01-19 06:18] LABS: HEMATOCRIT 23.4 % (36-48); HEMOGLOBIN 8.1 g/dL (12.0-16.0); MEAN CORPUSCULAR HEMOGLOBIN 30 pg (27-31); MEAN CORPUSCULAR HGB CONC 35 % (32-36); MEAN CORPUSCULAR VOLUME 87 fL (79.0-98.0); PLATELET COUNT (AUTO) 418 K/uL (130-430)
[2018-01-19] MEDS: PANTOPRAZOLE SODIUM 40 MG/VIAL (PROTONIX) IVP SCH ×2 (06:18→16:56)
[2018-01-19 06:32] LABS: ALANINE AMINOTRANSFERASE 36 U/L (12-78); ALBUMIN 1.3 g/dL (3.4-4.8); ANION GAP 17 (5-15); ASPARTATE AMINOTRANSFERASE 58 U/L (10-37); CALCIUM 8.4 mg/dL (8.4-11.0); CHLORIDE 108 mmol/L (98-107); CREATININE 3.86 mg/dL (0.55-1.30); GLUCOSE 87 mg/dL (70-99); LIPASE 454 U/L (73-393); SODIUM SERUM 138 mmol/L (136-145); TOTAL BILIRUBIN 2.5 mg/dL (0.0-1.0); UREA NITROGEN, BLOOD 44 mg/dL (8-21)
[2018-01-19] MEDS: HYDROmorphone 2 MG/ML VIAL IVP PRN ×2 (06:48→14:37)
[2018-01-19] MEDS ORDERED: HEPARIN SODIUM,PORCINE 5000 UNITS/ML VIAL ONE ×2 (07:28→16:46)
[2018-01-19] MEDS: FERROUS SULFATE 325 MG TABLET.DR PO SCH ×2 (08:24→22:09)
[2018-01-19] MEDS: DOCUSATE SODIUM 100 MG/10 ML UDC PO SCH (08:24)
[2018-01-19] MEDS: CLOPIDOGREL BISULFATE 75 MG TABLET PO SCH (08:24)
[2018-01-19] MEDS: DORZOLAMIDE 2% OPHTHALMIC SOLN 5ML OP SCH ×2 (09:08→22:11)
[2018-01-19 09:58] LABS: BAND % (MANUAL) 20 % (0-6); BASOPHILS % (MANUAL) 0 % (0-2); EOSINOPHILS % (MANUAL) 0 % (0-7); LYMPHOCYTES % (MANUAL) 4 % (20-46); MONOCYTES % (MANUAL) 2 % (0-11); MYELOCYTES % 3 % (0-0)
[2018-01-19 10:12] LABS: HEPATITIS A AB, IgM Negative (Negative); HEPATITIS B CORE AB, IgM Negative (Negative); HEPATITIS B SURFACE AG Negative (Negative)
[2018-01-19] MEDS: FUROSEMIDE 100 MG in D5W 90 ML IV SCH (12:04)
[2018-01-19] MEDS ORDERED: NOREPINEPHRINE BITARTRATE 4 MG in NS 246 ML IV PRN (15:45)
[2018-01-19] MEDS: FLUCONAZOLE 100 mg/ NS 50 ML IV SCH (19:25)
[2018-01-19] MEDS: MORPHINE 2 MG/ML INJ. SYRINGE IVP PRN (20:20)
[2018-01-19] MEDS: DONEPEZIL HCL 5 MG TABLET (ARICEPT) PO SCH (22:09)
[2018-01-20] VITALS (24 sets, daily range): BP systolic 137–189
[2018-01-20] MEDS: LevALBUTEROL HCL 1.25 MG/0.5 ML *CONC.* VIAL.NEB (XOPENEX CONC.) INH SCH ×4 (00:55→19:23)
[2018-01-20] MEDS: MORPHINE 2 MG/ML INJ. SYRINGE IVP PRN ×4 (01:07→15:26)
[2018-01-20] MEDS: CIPROFLOXACIN HCL 0.3% EYE DRP 2.5 ML DROPS OP SCH ×6 (03:17→23:10)
[2018-01-20] MEDS: hydrALAZINE HCL 20 MG/ML VIAL IVP PRN ×3 (04:18→20:15)
[2018-01-20] MEDS: metroNIDAZOLE 500 mg/NS 100 ML IV SCH (06:28)
[2018-01-20] MEDS: PIPERACILLIN/TAZO 2.25G/DEX-IS 50 ML IV SCH ×3 (06:29→21:32)
[2018-01-20 06:48] LABS: ANION GAP 18 (5-15); CALCIUM 8.2 mg/dL (8.4-11.0); CHLORIDE 103 mmol/L (98-107); CREATININE 3.02 mg/dL (0.55-1.30); GLUCOSE 195 mg/dL (70-99); SODIUM SERUM 137 mmol/L (136-145); UREA NITROGEN, BLOOD 30 mg/dL (8-21)
[2018-01-20 06:53] LABS: POTASSIUM 2.9 mmol/L (3.5-5.1)
[2018-01-20] MEDS: PANTOPRAZOLE SODIUM 40 MG/VIAL (PROTONIX) IVP SCH ×2 (07:00→18:20)
[2018-01-20 07:02] LABS: HEMATOCRIT 25.3 % (36-48); HEMOGLOBIN 8.6 g/dL (12.0-16.0); MEAN CORPUSCULAR HEMOGLOBIN 29 pg (27-31); MEAN CORPUSCULAR HGB CONC 34 % (32-36); MEAN CORPUSCULAR VOLUME 85 fL (79.0-98.0); PLATELET COUNT (AUTO) 442 K/uL (130-430); RED BLOOD CELL COUNT(AUTO) 2.97 MIL/uL (4.2-6.2); RED CELL DISTRIBUTION WIDTH 14.7 % (9.0-15.0)
[2018-01-20 07:10] LABS: WHITE BLOOD COUNT (AUTO) 42.2 K/uL (4.8-10.8)
[2018-01-20] MEDS ORDERED: POTASSIUM CHLORIDE 40 MEQ, LIDOCAINE JECT 2% PF 100 MG 50 MG in NS 250 ML IV ONE (07:15)
[2018-01-20] MEDS: FERROUS SULFATE 325 MG TABLET.DR PO SCH ×2 (08:05→20:18)
[2018-01-20] MEDS: DORZOLAMIDE 2% OPHTHALMIC SOLN 5ML OP SCH ×2 (08:05→20:21)
[2018-01-20] MEDS: CLOPIDOGREL BISULFATE 75 MG TABLET PO SCH (08:05)
[2018-01-20] MEDS: DOCUSATE SODIUM 100 MG/10 ML UDC PO SCH (08:05)
[2018-01-20 09:51] LABS: BAND % (MANUAL) 12 % (0-6); BASOPHILS % (MANUAL) 0 % (0-2); EOSINOPHILS % (MANUAL) 0 % (0-7); LYMPHOCYTES % (MANUAL) 3 % (20-46); MONOCYTES % (MANUAL) 7 % (0-11); MYELOCYTES % 1 % (0-0)
[2018-01-20 09:53] LABS: CORRECTED WHITE BLOOD COUNT 40.2 K/uL (4.5-11.0)
[2018-01-20] MEDS: FUROSEMIDE 100 MG in D5W 90 ML IV SCH ×2 (11:25→20:20)
[2018-01-20] MEDS ORDERED: VANCOMYCIN HCL 1 GM/NS PREMIX 250 ML IV ONE (18:00)
[2018-01-20] MEDS: FLUCONAZOLE 100 mg/ NS 50 ML IV SCH (18:13)
[2018-01-20] MEDS: HYDROmorphone 1 MG INJ. 1 MG/ML AMPUL IVP PRN ×2 (18:15→20:16)
[2018-01-20] MEDS: DONEPEZIL HCL 5 MG TABLET (ARICEPT) PO SCH (20:18)
[2018-01-20] MEDS: cloNIDine HCL 0.1 MG TABLET PO PRN (21:50)
[2018-01-21] VITALS (20 sets, daily range): BP systolic 103–172
[2018-01-21] MEDS: LevALBUTEROL HCL 1.25 MG/0.5 ML *CONC.* VIAL.NEB (XOPENEX CONC.) INH SCH ×4 (00:41→20:29)
[2018-01-21] MEDS: CIPROFLOXACIN HCL 0.3% EYE DRP 2.5 ML DROPS OP SCH ×2 (03:24→06:24)
[2018-01-21] MEDS: PIPERACILLIN/TAZO 2.25G/DEX-IS 50 ML IV SCH (06:07)
[2018-01-21] MEDS: HYDROmorphone 1 MG INJ. 1 MG/ML AMPUL IVP PRN ×2 (06:13→09:01)
[2018-01-21] MEDS: hydrALAZINE HCL 20 MG/ML VIAL IVP PRN (06:14)
[2018-01-21] MEDS: PANTOPRAZOLE SODIUM 40 MG/VIAL (PROTONIX) IVP SCH ×2 (06:23→18:15)
[2018-01-21 06:24] LABS: HEMATOCRIT 24.2 % (36-48); HEMOGLOBIN 8.7 g/dL (12.0-16.0); MEAN CORPUSCULAR HEMOGLOBIN 31 pg (27-31); MEAN CORPUSCULAR HGB CONC 36 % (32-36); MEAN CORPUSCULAR VOLUME 87 fL (79.0-98.0); PLATELET COUNT (AUTO) 498 K/uL (130-430); RED BLOOD CELL COUNT(AUTO) 2.79 MIL/uL (4.2-6.2)
[2018-01-21 06:27] LABS: ALANINE AMINOTRANSFERASE 29 U/L (12-78); ALBUMIN 1.1 g/dL (3.4-4.8); ANION GAP 15 (5-15); ASPARTATE AMINOTRANSFERASE 37 U/L (10-37); CALCIUM 8.1 mg/dL (8.4-11.0); CHLORIDE 105 mmol/L (98-107); CREATININE 3.66 mg/dL (0.55-1.30); GLUCOSE 331 mg/dL (70-99); POTASSIUM 3.3 mmol/L (3.5-5.1); SODIUM SERUM 137 mmol/L (136-145); TOTAL BILIRUBIN 1.6 mg/dL (0.0-1.0); UREA NITROGEN, BLOOD 46 mg/dL (8-21)
[2018-01-21 07:23] LABS: WHITE BLOOD COUNT (AUTO) 50.4 K/uL (4.8-10.8)
[2018-01-21 08:09] LABS: CORRECTED WHITE BLOOD COUNT 44.2 K/uL (4.5-11.0)
[2018-01-21 08:10] LABS: BAND % (MANUAL) 10 % (0-6); BASOPHILS % (MANUAL) 0 % (0-2); EOSINOPHILS % (MANUAL) 0 % (0-7); LYMPHOCYTES % (MANUAL) 9 % (20-46); METAMYELOCYTES % 3 % (0-0); MONOCYTES % (MANUAL) 8 % (0-11); MYELOCYTES % 1 % (0-0)
[2018-01-21] MEDS: FERROUS SULFATE 325 MG TABLET.DR PO SCH ×2 (08:28→21:00)
[2018-01-21] MEDS: MORPHINE 2 MG/ML INJ. SYRINGE IVP PRN (08:28)
[2018-01-21] MEDS: CLOPIDOGREL BISULFATE 75 MG TABLET PO SCH (08:28)
[2018-01-21] MEDS: DOCUSATE SODIUM 100 MG/10 ML UDC PO SCH (08:28)
[2018-01-21] MEDS: DORZOLAMIDE 2% OPHTHALMIC SOLN 5ML OP SCH ×2 (08:34→21:15)
[2018-01-21] MEDS ORDERED: MORPHINE IV SCH ×2 (10:45→16:30)
[2018-01-21] MEDS ORDERED: NS IV SCH ×2 (10:45→16:30)
[2018-01-21] MEDS: MEROPENEM 500 MG in NS 50 ML IV SCH ×2 (11:09→21:16)
[2018-01-21] MEDS ORDERED: MORPHINE SULFATE 100 MG/100 ML DRIP IV PRN (18:00)
[2018-01-21] MEDS: FLUCONAZOLE 100 mg/ NS 50 ML IV SCH (18:11)
[2018-01-21] MEDS: DONEPEZIL HCL 5 MG TABLET (ARICEPT) PO SCH (21:00)
[2018-01-21] MEDS: FUROSEMIDE 100 MG in D5W 90 ML IV SCH (21:09)
[2018-01-22 00:30] VITALS: BP_SYST 105
[2018-01-22] MEDS: LevALBUTEROL HCL 1.25 MG/0.5 ML *CONC.* VIAL.NEB (XOPENEX CONC.) INH SCH (01:59)
[2018-01-22] MEDS: HYDROmorphone 1 MG INJ. 1 MG/ML AMPUL IVP PRN (02:28)
[2018-01-22 02:29] VITALS: BP_SYST 101
[2018-01-22 03:15] VITALS: BP_SYST 58
[2018-01-23] MEDS ORDERED: VANCOMYCIN HCL 750 MG in NS 250 ML IV SCH (17:00)
== END 2018-01-22 03:35 | disposition expired | DRG 853 ==
LOC: SED 01:24 → STU 03:52 → SIC 01-15 15:35 → STU 01-21 18:44
PROVIDERS: ADMIT Family Medicine; ATTEND Family Medicine
PROC: 0F798ZZ Dilation of Common Bile Duct, Via Natural or Artificial Opening Endoscopic (ICD-10-PCS; 2018-01-15)
PROC: BF101ZZ Fluoroscopy of Bile Ducts using Low Osmolar Contrast (ICD-10-PCS; 2018-01-15)
PROC: 0FT44ZZ Resection of Gallbladder, Percutaneous Endoscopic Approach (ICD-10-PCS; principal; 2018-01-15 12:45)
PROC: 5A1D70Z Performance of Urinary Filtration, Intermittent, Less than 6 Hours Per Day (ICD-10-PCS; 2018-01-18)
PROC: 02HV33Z Insertion of Infusion Device into Superior Vena Cava, Percutaneous Approach (ICD-10-PCS; 2018-01-18)
PROC: B548ZZA Ultrasonography of Superior Vena Cava, Guidance (ICD-10-PCS; 2018-01-18)
PROC: 05PYX3Z Removal of Infusion Device from Upper Vein, External Approach (ICD-10-PCS; 2018-01-19)
PROC: 5A1D70Z Performance of Urinary Filtration, Intermittent, Less than 6 Hours Per Day (ICD-10-PCS; 2018-01-19)
PROC: 02HV33Z Insertion of Infusion Device into Superior Vena Cava, Percutaneous Approach (ICD-10-PCS; 2018-01-19)
DX: A41.9 Sepsis, unspecified organism (principal); J69.0 Pneumonitis due to inhalation of food and vomit; E43 Unspecified severe protein-calorie malnutrition; K29.71 Gastritis, unspecified, with bleeding; K85.10 Biliary acute pancreatitis without necrosis or infection; N17.0 Acute kidney failure with tubular necrosis; K92.0 Hematemesis; K80.62 Calculus of gallbladder and bile duct with acute cholecystitis without obstruction; E03.9 Hypothyroidism, unspecified; I10 Essential (primary) hypertension; F03.90 Unspecified dementia, unspecified severity, without behavioral disturbance, psychotic disturbance, mood disturbance, and anxiety; E11.9 Type 2 diabetes mellitus without complications; E78.5 Hyperlipidemia, unspecified; J44.9 Chronic obstructive pulmonary disease, unspecified; Z79.899 Other long term (current) drug therapy; Z86.73 Personal history of transient ischemic attack (TIA), and cerebral infarction without residual deficits; M81.0 Age-related osteoporosis without current pathological fracture; F20.9 Schizophrenia, unspecified; H54.7 Unspecified visual loss; Z66 Do not resuscitate; F29 Unspecified psychosis not due to a substance or known physiological condition; Z87.440 Personal history of urinary (tract) infections; Z22.322 Carrier or suspected carrier of Methicillin resistant Staphylococcus aureus; Z68.25 Body mass index [BMI] 25.0-25.9, adult; K76.9 Liver disease, unspecified
CPT/HCPCS: 36415; 71045; 74181; 74330-TC; 78226; 80048; 80053; 80074; 80076; 82150-TC; 82962; 83605; 83690-TC; 83735-TC; 83880; 84484; 85007; 85025; 85027; 85610-TC; 85730-TC; 87040-TC; 87070-TC; 87081; 88304; 90935; 90937; 92610-GN; 93005; 94640; 94760; 96361; 96365; 96375; 99285; A4409; A5061; A9537; C1727; C1751; C1769; C9113; J0360; J0456; J0696; J1170; J1450; J1644; J1885; J1940; J2175; J2185; J2250; J2270; J2274; J2405; J2543; J2765; J3370; J3480; J3490; J7030; J7050; J7060; J7612; J7620; Q9964; Q9967